=== PATIENT | male | born 1960 | race Hispanic/Latino ===

== ENCOUNTER 2024-10-16 04:40 | Emergency (ER) | payer OTHER ==
--- OUTSIDE RECORDS SUMMARY | 2024-10-16 04:46 | XMS REPORT | Continuity of Care Document ---
Author Name Unknown Address [address] [facility] [place] [address] [facility] Address [address] [facility] [place] [address] Care Team Providers Care Club Lounge Attendant Name Role Phone Demetria Younger MD, Saeed Mcmanus Primary Care Physic edil CARLENE OSORIO Attending Clinician Unavailable Kesha Suarez MA Attending Clinician UnavailLOI Chapin Attending Clinician Unavail Loi Goff MD Attending Clinician [phone] JAYSON JAIN Attending Clinician Unavailable ROMINA RENDON Attending Clinician Unav ailable MD HAIR Attending Clinician Unavailab BRET Szymanski Attending Clinician Unavailable CLAYTON ARRIETA Attending Clinician Unavailable SPARKLE OSORIO Attending Clinician Unavailable SANCHEZ DAMIAN Attending Clinician Unavailable ROBERT MACHUCA Attending Clinician Unava ilable Balta Grant MD Attending Clinician [phone] BALTA GRANT Attending Clinician Unavail able BALTA GRANT Attending Clinician Unavail able Doctor Unassigned, [place] Attending Clinician U navailable Lab, Ang - Db Attending Clinician Unavailable STEVE AGUILAR Attending Clinician Unavaila ble Steve Denney Attending Clinician [phone] Enio Almanzar MD Attending Clinician [phone] ENIO ALMANZAR Attending Clinician Unavail able Gladys Mccarty Attending Clinician [phone] James Salmon DO Attending Clinician [phone] Odilia Martinez MD Attending Clinician [phone] Carlene Osorio MD Attending Clinician [phone] CARLENE OSORIO Admitting Clinician Unavailable Juan HERNANDEZ, Odilia Admitting Clinician [phone] Carlene Osorio MD Admitting Clinician [phone] Payers Payer Name Policy Type Policy Number Effective Date Expirati on Date Source [employer] O [id number] 2022 00:00:00 [employer] Medicare [id number] 2024 00:00:00 [employer] MP [facility] 5 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 ON 9 [id number] 2023 00:00:00 MEDICARE PART A \\T\\ B [id number] 2023 00:00:00 [employer] COMMERCIAL OUT OF NETWORK [id number] 2022 00:00:00 Problems Condition Name Condition Details Condition Category Status Onset Date Resolution Date Last Treatment Date Treating Clinician Comments Source 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 Problem Active 2-18 00:00: 00 [facility] Severe recurrent major depression with psychotic features Severe Recurrent Major Depression with Psychotic Features Problem Active 218 00:00: 00 [facility] Copper deficiency Copper deficiency Disease Active 2-13 00:00: 00 [facility] Depression Depression Disease Active 2-13 00:00: 00 Gerson Stephens Unintentio nal weight loss Unintentio nal Weight Loss Problem Active 1-29 00:00: 00 [facility] Palliative care Palliative Care Problem Active 1-09 00:00: 00 [facility] Lives in senior living Lives in [facility] Problem Active 2023-08 00:00: 00 [facility] Administra tive statuses Administra tive Statuses Problem Active 2023-08 00:00: 00 [facility] Need for personal care assistance Need for Personal Care Assistance Problem Active 2023-08 00:00: 00 [facility] At high risk for fall At High Risk for Fall Problem Active 2023-08 00:00: 00 [facility] Hyperlipid emia Hyperlipid emia Problem Active 03-05 00:00: 00 [facility] Recurrent major depressive episodes, mild Recurrent Major Depressive Episodes, Mild Problem Active 7 00:00: 00 [facility] Current severe episode of major depressive disorder without psychotic features without prior episode (CMS/HCC) Current severe episode of major depressive disorder without psychotic features without prior episode (CMS/HCC) Disease Active 03-28 00:00: 00 [facility] Choreoathe tosis Choreoathe tosis Disease Active 03-28 00:00: 00 Gerson Stephens Pseudobulb ar affect Pseudobulb ar affect Disease Active 03-28 00:00: 00 Gerson Stephens Post-opera tive infection Post-opera tive infection Disease Active 05-06 00:00: 00 Gerson Stephens Acute appendicit is Acute appendicit is Disease Active 9- 00:00: 00 Gerson Stephens [place] 's chorea Cristian 's Chorea Problem Active [facility] Cough Cough Disease Resolve d 2- 00:00: 00 2024-09-27 00:00:00 2024-09-27 11:06:38 Gerson hollingsworth Juan [facility] Dry throat Dry throat Disease Resolve d - 00:00: 00 2024-09-27 00:00:00 2024-09-27 11:06:38 Gerson Martinez [facility] Infectious disease Infectious disease Disease Resolve d 09-27 00:00: 00 2024-09-27 00:00:00 2024-09-27 11:06:38 Gueritajuan edel Juan [facility] Allergies, Adverse Reactions, Alerts Allergy Name Allergy Type Status Severity Reaction(s) Onset Date Inactive Date Treating Clinician Comments Source NO KNOWN ALLERGIE S Drug Class Active [facility] Social History Social Habit Start Date Stop Date Quantity Comments Source Gender identity 2023-11-06 07:59:43 Identifies as male gender (finding) [facility] Sexual orientation [facility] Tobacco use and exposure 2024-09-27 00:00:00 2024-09-27 00:00:00 Smokeless tobacco non-user [facility] Alcoholic beverage intake 2024-09-27 00:00:00 2024-09-27 00:00:00 Lifetime non-drinker (finding) [facility] History of Social function 2024-09-27 00:00:00 2024-09-27 00:00:00 [facility] Alcohol intake 2023-11-14 00:00:00 2023-11-14 00:00:00 Ex-drinker (finding) Mee Alves - External Exposure to SARS-CoV-2 (event) 2022-10-12 00:00:00 2022-10-22 09:48:00 Not sure [facility] Sex Assigned At 1960 00:00:00 1960 00:00:00 Harrison Alves - External Smoking Status Start Date Stop Date Source Never smoked tobacco Gerson hollingsworth Juan [facility] Medications Ordered Medication Name Filled Medication Name Start Date Stop Date Current Medication? Ordering Clinician Indication Dosage Frequency Signature (SIG) Comments Components Source dextrometho rphan-quiNI Dine (Nuedexta) 20-10 MG dextrometho demian-quiNI Dine (Nuedexta) 20-10 MG 2-14 00:00: 00 09-28 23:59 :00 No 1{capsu le} QD Take 1 capsule by mouth 1 time each day. Gerson Stephens sertraline (Zoloft) 50 MG tablet sertraline (Zoloft) 50 MG tablet 2-13 11:01: 04 Yes QD Take by mouth 1 time each day. Gerson Martinez [facility] deutetraben azine ER (Austedo XR) 36 MG 24 hr tablet deutetraben azine ER (Austedo XR) 36 MG 24 hr tablet 2-13 00:00: 00 09-27 23:59 :00 No 36mg QD Take 1 tablet by mouth 1 time each day. Swallow whole; do NOT break, chew, or crush. Gerson Stephens amantadine (Symmetrel) 100 MG tablet amantadine (Symmetrel) 100 MG tablet 1-31 00:00: 00 09-27 00:00 :00 No Gerson Stephens atorvastati n (Lipitor) 20 MG tablet atorvastati n (Lipitor) 20 MG tablet 1-19 00:00: 00 Yes Gerson Martinez [facility] mirtazapine (Remeron) 15 MG tablet mirtazapine (Remeron) 15 MG tablet 2023-08 2-06 00:00: 00 Yes 15mg QD Take 15 mg by mouth in the morning. Take with meals. Gerson Martinez [facility] QUEtiapine (SEROquel) 25 MG tablet QUEtiapine (SEROquel) 25 MG tablet 5-28 00:00: 00 Yes 25mg Q.[id number] 3D Take 25 mg by mouth in the morning and 25 mg at noon and 25 mg in the evening. Gerson Martinez [facility] Mirtazapine 15 MG oral Tablet 4- 17:00: 24 11-13 00:00 :00 No [id number] 15mg Take 1 tablet (15 mg total) by mouth nightly. Mee hollingsworth Mirtazapine 15 MG oral Tablet 11-13 00:00: 00 Yes [id number] 15mg Take 1 tablet (15 mg total) by mouth daily (with breakfast) . Mee hollingsworth Deutetraben azine (Austedo) 12 MG oral Tablet 10-20 00:00: 00 Yes [id number] 3{tbl} Take 3 tablets by mouth daily. Mee hollingsworth Mirtazapine 15 MG oral Tablet 10-07 15:33: 36 Yes [id number] 15mg Take 1 tablet (15 mg total) by mouth nightly. Mee hollingsworth Deutetraben azine (Austedo) 12 MG oral Tablet 10-07 00:00: 00 Yes [id number] 3{tbl} Take 3 tablets by mouth daily. Mee hollingsworth dextrometho rphan-quiNI Dine (Nuedexta) 20-10 MG dextrometho rphan-quiNI Dine (Nuedexta) 20-10 MG 10-07 00:00: 00 09-28 00:00 :00 No 1{capsu le} QD Take 1 capsule by mouth 1 time each day. Gerson Stephens Sertraline HCl 50 MG oral Tablet 2022-08 00:00: 00 11-13 00:00 :00 No [id number] 50mg Take 1 tablet (50 mg total) by mouth daily. Mee hollingsworth Clonazepam 0.5 MG oral Tablet 2022-08 00:00: 00 Yes [id number] .5mg Q.5D TAKE ONE TABLET BY MOUTH TWICE A DAY NEEDED FOR ANXIETY Mee hollingsworth Deutetraben azine (Austedo) 12 MG oral Tablet 2022-08 00:00: 00 10-07 00:00 :00 No [id number] 3{tbl} Take 3 tablets by mouth daily. Mee hollingsworth Mirtazapine 15 MG oral Tablet 2023-1 1-08 09:42: 26 Yes [id number] 15mg Take 1 tablet (15 mg total) by mouth nightly. Mee hollingsworth Deutetraben azine (Austedo) 12 MG oral Tablet 2022-08 018 00:00: 00 Yes [id number] 36mg Take 36 mg by mouth daily Take 3 tabs by mouth daily. Mee hollingsworth Sertraline HCl 50 MG oral Tablet 9-19 00:00: 00 Yes [id number] 50mg TAKE 1 TABLET BY MOUTH DAILY Mee hollingsworth Clonazepam 0.5 MG oral Tablet 18 00:00: 00 Yes [id number] .5mg Q.5D Take 1 tablet (0.5 mg total) by mouth 2 times daily as needed for anxiety Mee hollingsworth Alprazolam 0.25 MG oral Tablet 11-09 09:55: 11 11-09 00:00 :00 No .25mg Q.5D Take 0.25 mg by mouth 2 times daily as needed Mee hollingsworth Alprazolam 0.5 MG oral Tablet 11-09 00:00: 00 Yes [id number] .5mg Q.[id number] 3D Take 1 tablet (0.5 mg total) by mouth 3 times daily as needed for sleep Mee hollingsworth ALPRAZolam (XANAX) 0.5 mg tablet 11-08 00:00: 00 Yes [id number] .5mg Take 1 tablet by mouth 2 (two) times daily. [facility] Alprazolam 0.5 MG oral Tablet 10-22 00:00: 00 11-09 00:00 :00 No Mee hollingsworth acetaminoph en (TYLENOL) tablet 1,000 mg 09-25 19:30: 00 09-25 18:49 :00 No 1000mg 1,000 mg, Oral, ONCE, 1 dose, On 09/25/22 at 1330, Routine [facility] NaCl 0.9% (NS) bolus infusion 1,000 mL 09-25 19:15: 00 09-25 19:57 :00 No 1000mL at 999 mL/hr, 1,000 mL, IV Infusion, ONCE, 1 dose, On 09/25/22 at 1315, [facility] diphenhydrA MINE (BENADRYL) injection 25 mg 09-25 18:30: 00 09-25 18:49 :00 No 25mg 25 mg, Slow IV Push, ONCE, 1 dose, On 09/25/22 at 1230, STAT [facility] LORazepam (ATIVAN) injection 1 mg 09-25 18:30: 00 09-25 18:49 :00 No 1mg 1 mg, Slow IV Push, ONCE, 1 dose, On 09/25/22 at 1230, STAT [facility] hydrOXYzine HCl 50 MG oral Tablet 09-25 00:00: 00 Yes Mee hollingsworth PAXLOVID RENAL (20) (150/100) Therapy Pack 09-25 00:00: 00 Yes Mee hollingsworth hydrOXYzine Pamoate 25 MG oral Capsule 09-23 00:00: 00 Yes Mee hollingsworth escitalopra m oxalate (LEXAPRO) tablet 10 mg 05-07 14:00: 00 Yes 10mg 10 mg, Oral, DAILY, First dose on Tue05/07/20 at 0900, Until Discontinu ed, Routine [facility] NaCl 0.9% (NS) IV infusion 1,000 mL 05-07 03:15: 00 Yes 1000mL at 100 mL/hr, IV Infusion, CONTINUOUS , Starting Tue05/06/20 at 2215, Until Discontinu ed, Routine [facility] docusate (COLACE) capsule 100 mg 05-07 01:00: 00 Yes 100mg 100 mg, Oral, BID, First dose on Tue05/06/20 at 2000, Until Discontinu ed, Routine [facility] lactobacill us acidophilus 25 million cell -100 mg captab 05-07 00:00: 05-18 04:59 :00 No [id number] 1{tbl} Take 1 tablet by mouth 2 (two) times daily for 10 days. [facility] amoxicillin -pot clavulanate 500 mg (AUGMENTIN) 500-125 mg tablet 05-07 00:00: 00 05-18 04:59 :00 No [id number] 9103 500mg Take 1 tablet by mouth 2 (two) times daily with meals for 10 days. [facility] traMADoL 50 mg tablet 05-07 00:00: 00 05-15 04:59 :00 No [id number] 50mg Take 1 tablet by mouth every 6 (six) hours as needed for Pain (scale 7-10) for up to 7 days. Indication s: acute pain [facility] HYDROcodone -acetaminop hen (NORCO 5) 5-325 mg tablet 1 tablet 05-06 22:45: 51 Yes 1{tbl} 1 tablet, Oral, Q6HPRN, Starting Tue05/06/20 at 1745, Until Discontinu ed, Routine, Pain (scale 7-10) [facility] ibuprofen (IBU) tablet 400 mg 05-06 22:45: 39 Yes 400mg 400 mg, Oral, Q6HPRN, Starting Tue05/06/20 at 1745, Until Discontinu ed, Routine, Pain (scale 4-6) [facility] acetaminoph en (TYLENOL) tablet 650 mg 05-06 22:45: 29 Yes 650mg 650 mg, Oral, Q6HPRN, Starting Tue05/06/20 at 1745, Until Discontinu ed, Routine, Pain (scale 1-3) [facility] enoxaparin (LOVENOX) injection 40 mg 05-06 22:00: 00 Yes 40mg 40 mg, Subcutaneo us, DAILY, First dose on Tue05/06/20 at 1700, Until Discontinu ed, Routine [facility] piperacilli n-tazobacta m (ZOSYN) 3.375 g in NaCl 0.9% (NS) 100 mL MINI-BAG 05-06 21:30: 00 Yes 3.375g 3.375 g, IV Piggyback, Q6H ABX, First dose (after last reorder) on Tue05/06/20 at 1630, Until Discontinu ed, 100 mL
Reas on for Anti-Infec tive: Empiric Therapy for Suspected Infection< br>Empiric Therapy Site: Abdominal< br>Duratio n of therapy: 72 hours [facility] ondansetron (ZOFRAN (PF)) injection 4 mg 05-06 20:17: 44 Yes 4mg 4 mg, Slow IV Push, Q6HPRN, Starting Tue05/06/20 at 1517, Until Discontinu ed, Routine, Nausea and Vomiting (N/V) [facility] lactobacill us acidophilus (ACIDOPHILL US) 25 million cell -100 mg captab 1 tablet 05-06 20:00: 00 Yes 1{tbl} 1 tablet, Oral, BID, First dose on Tue05/06/20 at 1500, Until Discontinu ed, Routine [facility] iohexol (OMNIPAQUE 350 BULK-150 mL) injection 120 mL 05-06 15:45: 00 05-06 15:32 :00 No 120mL 120 mL, Intravenou s, ONCE, 1 dose, Tue05/06/20 at 1045, Routine [facility] NaCl 0.9% (NS) bolus infusion 2,313 mL 05-06 15:30: 00 05-06 15:44 :00 No 30mL/kg at 999 mL/hr, 2,313 mL (30 mL/kg ?77.1 kg), IV Piggyback, ONCE, 1 dose, Tue05/06/20 at 1030, STAT [facility] piperacilli n-tazobacta m (ZOSYN) 3.375 g in NaCl 0.9% (NS) 100 mL MINI-BAG 05-06 15:30: 00 05-06 15:03 :00 No 3.375g 3.375 g, IV Piggyback, ONCE, 1 dose, Tue05/06/20 at 1030, 100 mL
Reas on for Anti-Infec tive: Empiric Therapy for Suspected Infection< br>Empiric Therapy Site: Abdominal< br>Duratio n of therapy: 72 hours [facility] acetaminoph en (TYLENOL) tablet 1,000 mg 05-06 15:15: 00 05-06 14:08 :00 No 1000mg 1,000 mg, Oral, ONCE, 1 dose, [facility] 05/06/20 at 1015, [facility] ondansetron (ZOFRAN (PF)) injection 4 mg 05-06 15:00: 00 05-06 14:08 :00 No 4mg 4 mg, Slow IV Push, ONCE, 1 dose, Tue05/06/20 at 1000, Routine [facility] NaCl 0.9% (NS) bolus infusion 1,000 mL 05-06 14:00: 00 05-06 15:31 :00 No 1000mL at 999 mL/hr, 1,000 mL, IV Infusion, ONCE, 1 dose, 05/06/20 at 0900, STAT [facility] ibuprofen 800 mg tablet 04-19 00:00: 00 Yes [id number] 800mg Take 1 tablet by mouth every 6 (six) hours as needed for Pain (scale 1-3) or Pain (scale 4-6). [facility] acetaminoph en ADULT (OFIRMEV) injection 1,000 mg 04-18 20:30: 00 04-19 13:49 :00 No 1000mg 1,000 mg, IV Infusion, Administer over 15 Minutes, Q8H ABX, 3 doses, First dose on Tue04/18/20 at 1530, Last dose on Tue04/19/20 at 0730, Routine
Indicatio n: Perioperat kailash Patient [facility] ibuprofen (IBU) tablet 800 mg 04-18 19:22: 06 Yes 800mg 800 mg, Oral, Q6HPRN, Starting Tue04/18/20 at 1422, Until Discontinu ed, Routine, Pain (scale 1-3), Pain (scale 4-6) [facility] piperacilli n-tazobacta m (ZOSYN) 3.375 g in NaCl 0.9% (NS) 100 mL MINI-BAG 04-18 01:00: 00 Yes 3.375g 3.375 g, IV Piggyback, Q6H ABX, First dose on Shayy 04/17/20 at 2000, Until Discontinu ed, 100 mL
Reas on for Anti-Infec tive: Documented Infection< br>Documen nishant Infection Site: Abdominal< br>Duratio n of Therapy: 7 days [facility] ibuprofen (IBU) tablet 400 mg 04-17 23:45: 00 04-18 19:22 :46 No 400mg 400 mg, Oral, Q6H, First dose on Shayy 04/17/20 at 1845, Until Discontinu ed, Routine [facility] LORazepam (ATIVAN) injection 1 mg 04-17 22:30: 00 04-18 01:36 :00 No 1mg 1 mg, Slow IV Push, ONCE, 1 dose, Shayy 04/17/20 at 1730, Routine [facility] NaCl 0.9% (NS) IV infusion 1,000 mL 04-17 22:15: 00 Yes 1000mL at 125 mL/hr, IV Infusion, CONTINUOUS , Starting Shayy 04/17/20 at 1715, Until Discontinu ed, Routine [facility] ondansetron (ZOFRAN (PF)) injection 4 mg 04-17 21:08: 24 Yes 4mg 4 mg, Slow IV Push, Q6HPRN, Starting Shayy 04/17/20 at 1608, Until Discontinu ed, Routine, Nausea and Vomiting (N/V) [facility] morpHINE injection 2 mg 04-17 21:07: 58 04-18 19:22 :46 No 2mg 2 mg, Slow IV Push, Q3HPRN, Starting Shayy 04/17/20 at 1607, Until Tue04/18/20 at 1422, Routine, Pain (scale 7-10) [facility] mirtazapine 15 mg tablet Take 1 tablet every day by oral route at bedtime. mirtazapine 15 mg tablet Take 1 tablet every day by oral route at bedtime. No 1 Q1D mirtazapin e 15 mg tablet Take 1 tablet every day by oral route at bedtime. [facility] Nuedexta 20 mg-10 mg capsule Take 1 capsule every 12 hours by oral route for 30 days. Nuedexta 20 mg-10 mg capsule Take 1 capsule every 12 hours by oral route for 30 days. No 1capsul e(s) Q12H Nuedexta 20 mg-10 mg capsule Take 1 capsule every 12 hours by oral route for 30 days. [facility] Austedo XR 36 mg tablet,exte nded release Austedo XR 36 mg tablet,exte nded release No Austedo XR 36 mg tablet,ext ended release [facility] Seroquel 25 mg tablet Take 1 tablet 3 times a day by oral route. Seroquel 25 mg tablet Take 1 tablet 3 times a day by oral route. No 1 TID Seroquel 25 mg tablet Take 1 tablet 3 times a day by oral route. [facility] Immunizations Ordered Immunization Name Filled Immunization Name Date Status Comments Source Covid-19 Vaccine Moderna (Spikevax), Mrna-lnp, Jeremías Protein, Pf 2020-11-21 00:00:00 Completed [facility] Covid-19 Vaccine Moderna (Spikevax), Mrna-lnp, Jeremías Protein, Pf 2020-10-21 00:00:00 Completed [facility] Covid-19 Vaccine Moderna (Spikevax), Mrna-lnp, Jeremías Protein, Pf Unknown Completed [facility] External Covid-19 Vaccine Moderna (Spikevax), Mrna-lnp, Jeremías Protein, Pf Unknown Completed [facility] External Covid-19 Vaccine Moderna (Spikevax), Mrna-lnp, Jeremías Protein, Pf Unknown Completed [facility] COVID-19 (SARS-COV-2) vaccine, unspecified COVID-19 (SARS-COV-2) vaccine, unspecified Unknown Completed [facility] influenza, unspecified formulation influenza, unspecified formulation Unknown Completed [facility] Vital Signs Vital Name Observation Time Observation Value Comments S ource BMI (Body Mass Index) 2024-10-01 00:00:00 20.9 kg/m2 [facility] BP Systolic 2024-10-01 00:00:00 132 mm[Hg] [facility] BP Diastolic 2024-10-01 00:00:00 68 mm[Hg] [facility] Height 2024-10-01 00:00:00 67 [in_i] [facility] Body Weight 2024-10-01 00:00:00 2132 [oz_av] [facility] Systolic blood pressure 2024-09-27 11:03:00 112 mm[Hg] [facility] Epic Diastolic blood pressure 2024-09-27 11:03:00 49 mm[Hg] [facility] Epic Heart rate 2024-09-27 11:03:00 91 /min [facility] Body temperature 2024-09-27 11:03:00 36.22 [facility] Epic Respiratory rate 2024-09-27 11:03:00 16 /min [facility] Body height 2024-09-27 11:03:00 157.5 cm [facility] Body weight 2024-09-27 11:03:00 62.143 kg [facility] [place] [facility] BMI 2024-09-27 11:03:00 25.06 kg/m2 [facility] Oxygen saturation in Arterial blood by Pulse oximetry 2024-09-27 11:03:00 94 /min [facility] Epic Systolic blood pressure 2024-09-27 11:03:00 112 mm[Hg] [facility] Epic Diastolic blood pressure 2024-09-27 11:03:00 49 mm[Hg] [facility] Epic Heart rate 2024-09-27 11:03:00 91 /min [facility] Body temperature 2024-09-27 11:03:00 36.22 [facility] Epic Respiratory rate 2024-09-27 11:03:00 16 /[facility] 2024-09-27 11:03:00 157.5 cm [facility] [place] [facility] Body weight 2024-09-27 11:03:00 62.143 kg [facility] BMI 2024-09-27 11:03:00 25.06 kg/m2 [facility] Oxygen saturation in Arterial blood by Pulse oximetry 2024-09-27 11:03:00 94 /min [facility] Height 2024-09-11 00:00:00 67 [in_i] [facility] BP Diastolic 2024-09-11 00:00:00 82 mm[Hg] [facility] BP Systolic 2024-09-11 00:00:00 138 mm[Hg] [facility] Body Weight 2024-09-11 00:00:00 2182 [oz_av] [facility] BMI (Body Mass Index) 2024-09-11 00:00:00 21.4 kg/m2 [facility] Body Weight 2024-08-23 00:00:00 2182 [oz_av] [facility] BMI (Body Mass Index) 2024-08-23 00:00:00 21.4 kg/m2 [facility] BP Systolic 2024-08-23 00:00:00 136 mm[Hg] [facility] BP Diastolic 2024-08-23 00:00:00 79 mm[Hg] [facility] Height 2024-08-23 00:00:00 67 [in_i] [facility] BP Systolic 2024-07-27 00:00:00 118 mm[Hg] [facility] BMI (Body Mass Index) 2024-07-27 00:00:00 22.6 kg/m2 [facility] Height 2024-07-27 00:00:00 67 [in_i] [facility] Body Weight 2024-07-27 00:00:00 2304 [oz_av] [facility] BP Diastolic 2024-07-27 00:00:00 74 mm[Hg] [facility] BP Diastolic 2024-07-06 00:00:00 78 mm[Hg] [facility] Body Weight 2024-07-06 00:00:00 2352 [oz_av] [facility] Height 2024-07-06 00:00:00 67 [in_i] [facility] BMI (Body Mass Index) 2024-07-06 00:00:00 23 kg/m2 [facility] BP Systolic 2024-07-06 00:00:00 128 mm[Hg] [facility] BP Systolic 2024-06-21 00:00:00 132 mm[Hg] [facility] Height 2024-06-21 00:00:00 67 [in_i] [facility] Body Weight 2024-06-21 00:00:00 2342 [oz_av] [facility] BP Diastolic 2024-06-21 00:00:00 73 mm[Hg] [facility] BMI (Body Mass Index) 2024-06-21 00:00:00 22.9 kg/m2 [facility] BMI (Body Mass Index) 2024-05-30 00:00:00 22.9 kg/m2 [facility] BP Systolic 2024-05-30 00:00:00 132 mm[Hg] [facility] Body Weight 2024-05-30 00:00:00 2342 [oz_av] [facility] BP Diastolic 2024-05-30 00:00:00 73 mm[Hg] [facility] Height 2024-05-30 00:00:00 67 [in_i] [facility] Height 2024-05-07 00:00:00 67 [in_i] [facility] Body Weight 2024-05-07 00:00:00 2264 [oz_av] [facility] BP Diastolic 2024-05-07 00:00:00 70 mm[Hg] [facility] BP Systolic 2024-05-07 00:00:00 132 mm[Hg] [facility] BMI (Body Mass Index) 2024-05-07 00:00:00 22.2 kg/m2 [facility] BP Diastolic 2024-04-12 00:00:00 68 mm[Hg] [facility] BP Systolic 2024-04-12 00:00:00 118 mm[Hg] [facility] BMI (Body Mass Index) 2024-04-12 00:00:00 22.1 kg/m2 [facility] Body Weight 2024-04-12 00:00:00 2260 [oz_av] [facility] Height 2024-04-12 00:00:00 67 [in_i] [facility] BP Systolic 2024-04-02 00:00:00 122 mm[Hg] [facility] Height 2024-04-02 00:00:00 67 [in_i] [facility] BMI (Body Mass Index) 2024-04-02 00:00:00 22.1 kg/m2 [facility] BP Diastolic 2024-04-02 00:00:00 76 mm[Hg] [facility] Body Weight 2024-04-02 00:00:00 2260 [oz_av] [facility] BMI (Body Mass Index) 2024-03-12 00:00:00 22.1 kg/m2 [facility] Height 2024-03-12 00:00:00 67 [in_i] [facility] Body Weight 2024-03-12 00:00:00 2260 [oz_av] [facility] BP Systolic 2024-03-12 00:00:00 134 mm[Hg] [facility] BP Diastolic 2024-03-12 00:00:00 76 mm[Hg] [facility] BMI (Body Mass Index) 2024-02-27 00:00:00 21.8 kg/m2 [facility] BP Systolic 2024-02-27 00:00:00 127 mm[Hg] [facility] Height 2024-02-27 00:00:00 67 [in_i] [facility] Body Weight 2024-02-27 00:00:00 2230 [oz_av] [facility] BP Diastolic 2024-02-27 00:00:00 72 mm[Hg] [facility] Height 2024-02-24 00:00:00 67 [in_i] [facility] BP Diastolic 2024-02-24 00:00:00 70 mm[Hg] [facility] Body Weight 2024-02-24 00:00:00 2160 [oz_av] [facility] BP Systolic 2024-02-24 00:00:00 115 mm[Hg] [facility] BMI (Body Mass Index) 2024-02-24 00:00:00 21.1 kg/m2 [facility] Body Weight 2024-02-10 00:00:00 2160 [oz_av] [facility] BP Diastolic 2024-02-10 00:00:00 74 mm[Hg] [facility] BMI (Body Mass Index) 2024-02-10 00:00:00 21.1 kg/m2 [facility] Height 2024-02-10 00:00:00 67 [in_i] [facility] BP Systolic 2024-02-10 00:00:00 121 mm[Hg] [facility] Height 2024-02-09 00:00:00 67 [in_i] [facility] BMI (Body Mass Index) 2024-02-09 00:00:00 21.1 kg/m2 [facility] BP Systolic 2024-02-09 00:00:00 115 mm[Hg] [facility] Diastolic 2024-02-09 00:00:00 70 mm[Hg] [facility] Body Weight 2024-02-09 00:00:00 2160 [oz_av] [facility] BMI (Body Mass Index) 2024-02-06 00:00:00 21.1 kg/m2 [facility] Body Weight 2024-02-06 00:00:00 2160 [oz_av] [facility] Height 2024-02-06 00:00:00 67 [in_i] [facility] BP Systolic 2024-02-06 00:00:00 133 mm[Hg] [facility] Diastolic 2024-02-06 00:00:00 66 mm[Hg] [facility] Systolic blood pressure 2023-11-29 00:08:00 149 mm[Hg] [facility] Diastolic blood pressure 2023-11-29 00:08:00 108 mm[Hg] [facility] Heart rate 2023-11-29 00:06:00 76 /min [facility] Body temperature 2023-11-29 00:06:00 37.17 Elisabeth [facility] Respiratory rate 2023-11-29 00:06:00 20 /min [facility] Body weight 2023-11-29 00:06:00 62.143 kg [facility] BMI 2023-11-29 00:06:00 20.23 kg/m2 [facility] Oxygen saturation in Arterial blood by Pulse oximetry 2023-11-29 00:06:00 98 /min [facility] Systolic blood pressure 2023-11-14 20:55:00 118 mm[Hg] Mee Osborne ld - External Diastolic blood pressure 2023-11-14 20:55:00 76 mm[Hg] Mee lees - External Heart rate 2023-11-14 20:55:00 66 /min Kelse y Seybold - External Body temperature 2023-11-14 20:55:00 36.5 Elisabeth Mee Seybold - External Respiratory rate 2023-11-14 20:55:00 16 /min Mee Seybold - External Body height 2023-11-14 20:55:00 170.2 cm Tiffany ey Seybold - External Body weight 2023-11-14 20:55:00 69.491 kg Tiffany ey Seybold - External BMI 2023-11-14 20:55:00 23.99 kg/m2 Tiffany ey Seybold - External Oxygen saturation in Arterial blood by Pulse oximetry 2023-11-14 20:55:00 97 /min Mee Seybo ld - External Systolic blood pressure 2023-10-07 21:35:00 122 mm[Hg] Mee Seybo ld - External Diastolic blood pressure 2023-10-07 21:35:00 76 mm[Hg] Mee Seybo ld - External Heart rate 2023-10-07 21:35:00 82 /min Kelse y Seybold - External Body temperature 2023-10-07 21:35:00 36.83 Elisabeth Mee Seybold - External Respiratory rate 2023-10-07 21:35:00 16 /min Mee Seybold - External Body height 2023-10-07 21:35:00 172.7 cm Tiffnay ey Seybold - External Body weight 2023-10-07 21:35:00 69.854 kg Tiffany ey Seybold - External BMI 2023-10-07 21:35:00 23.42 kg/m2 Tiffany ey Seybold - External Oxygen saturation in Arterial blood by Pulse oximetry 2023-10-07 21:35:00 97 /min Mee Seybo ld - External Systolic blood pressure 2023-06-22 15:43:00 120 mm[Hg] Mee Seybo ld - External Diastolic blood pressure 2023-06-22 15:43:00 74 mm[Hg] Mee Seybo ld - External Heart rate 2023-06-22 15:43:00 72 /min Kelse y Seybold - External Body temperature 2023-06-22 15:43:00 36.78 Elisabeth Mee Seybold - External Respiratory rate 2023-06-22 15:43:00 16 /min Mee Seybold - External Body height 2023-06-22 15:43:00 172.7 cm Tiffany ey Seybold - External Body weight 2023-06-22 15:43:00 65.227 kg Tiffany ey Seybold - External BMI 2023-06-22 15:43:00 21.86 kg/m2 Tiffany ey Seybold - External Systolic blood pressure 2022-11-09 14:20:00 130 mm[Hg] Mee Seybo ld - External Diastolic blood pressure 2022-11-09 14:20:00 68 mm[Hg] Mee Seybo ld - External Heart rate 2022-11-09 14:20:00 77 /min Gael villarreal Seybold - External Body temperature 2022-11-09 14:20:00 37 Elisabeth Mee Seybold - External Respiratory rate 2022-11-09 14:20:00 16 /min Mee Seybold - External Body height 2022-11-09 14:20:00 172.7 cm Tiffany ey Seybold - External Body weight 2022-11-09 14:20:00 60.328 kg Tiffany ey Seybold - External BMI 2022-11-09 14:20:00 20.22 kg/m2 Tiffany ey Seybold - External Oxygen saturation in Arterial blood by Pulse oximetry 2022-11-09 14:20:00 92 /min Mee Echolsybo ld - External Systolic blood pressure 2022-10-22 16:21:00 151 mm[Hg] [facility] Diastolic blood pressure 2022-10-22 16:21:00 87 mm[Hg] [facility] Heart rate 2022-10-22 16:21:00 74 /min [facility] 2022-10-22 16:21:00 175.3 cm [facility] weight 2022-10-22 16:21:00 62.143 kg [facility] BMI 2022-10-22 16:21:00 20.23 kg/m2 [facility] Oxygen saturation in Arterial blood by Pulse oximetry 2022-10-22 16:21:00 98 /min [facility] Systolic blood pressure 2022-09-25 20:09:55 112 mm[Hg] [facility] Diastolic blood pressure 2022-09-25 20:09:55 64 mm[Hg] [facility] Heart rate 2022-09-25 20:09:55 74 /min Unive [facility] Respiratory rate 2022-09-25 20:09:55 18 /min [facility] Oxygen saturation in Arterial blood by Pulse oximetry 2022-09-25 20:09:55 97 /min [facility] Body temperature 2022-09-25 17:43:00 37.78 Elisabeth [facility] Body weight 2022-09-25 17:43:00 69.4 kg [facility] BMI 2022-09-25 17:43:00 27.10 kg/m2 [facility] Systolic blood pressure 2020-05-23 15:33:00 144 mm[Hg] [facility] Diastolic blood pressure 2020-05-23 15:33:00 92 mm[Hg] [facility] Heart rate 2020-05-23 15:33:00 94 /min Un[facility] Body temperature 2020-05-23 15:33:00 36.56 Elisabeth [facility] Respiratory rate 2020-05-23 15:33:00 18 /min [facility] Body weight 2020-05-23 15:33:00 69.536 kg [facility] BMI 2020-05-23 15:33:00 27.16 kg/m2 [facility] Systolic blood pressure 2020-05-14 18:51:00 136 mm[Hg] [facility] Diastolic blood pressure 2020-05-14 18:51:00 90 mm[Hg] [facility] Heart rate 2020-05-14 18:51:00 93 /min [facility] Body temperature 2020-05-14 18:50:00 36.67 Elisabeth [facility] Respiratory rate 2020-05-14 18:50:00 15 /min [facility] Body height 2020-05-14 18:50:00 160 cm [facility] Body weight 2020-05-14 18:50:00 68.947 kg [facility] BMI 2020-05-14 18:50:00 26.93 kg/m2 [facility] Systolic blood pressure 2020-05-07 15:56:00 126 mm[Hg] [facility] Diastolic blood pressure 2020-05-07 15:56:00 77 mm[Hg] [facility] Heart rate 2020-05-07 15:56:00 88 /min [facility] Body temperature 2020-05-07 15:56:00 37.06 Elisabeth [facility] Respiratory rate 2020-05-07 15:56:00 18 /min [facility] Oxygen saturation in Arterial blood by Pulse oximetry 2020-05-07 15:56:00 96 /min [facility] Body weight 2020-05-07 10:06:00 71.385 kg [facility] BMI 2020-05-07 10:06:00 27.88 kg/m2 [facility] Systolic blood pressure 2020-04-19 16:08:00 112 mm[Hg] [facility] Diastolic blood pressure 2020-04-19 16:08:00 78 mm[Hg] [facility] Heart rate 2020-04-19 16:08:00 67 /min [facility] Body temperature 2020-04-19 16:08:00 36.72 Elisabeth [facility] Respiratory rate 2020-04-19 16:08:00 16 /min [facility] Oxygen saturation in Arterial blood by Pulse oximetry 2020-04-19 16:08:00 96 /min [facility] Body weight 2020-04-19 08:00:00 75.479 kg [facility] BMI 2020-04-19 08:00:00 29.48 kg/m2 [facility] Body height 2020-04-17 20:56:00 160 cm [facility] Procedures Procedure Date / Time Performed Performing Clinician Source ECG 12 lead 2024-09-27 00:00:[address] [facility] Epic LIPASE 2022-09-25 18:32:00 [facility]. METABOLIC PANEL (41801) 2022-09-25 18:32:00 Steve Aguilar [facility] CBC WITH DIFF 2022-09-25 18:32:00 Steve Aguilar [facility] URINALYSIS 2022-09-25 18:32:00 [facility] RAPID STREP SCREEN FOR GROUP A 2022-09-25 18:32:00 Steve Aguilar [facility] COVID-19 (ID NOW RAPID TESTING) 2022-09-25 18:32:00 Steve Aguilar [facility] CONSENT/REFUSAL FOR DIAGNOSIS AND TREATMENT 2022-09-25 17:35:52 Doctor Unassigned, Humbird [facility] NOTICE OF PRIVACY PRACTICES 2020-05-23 15:25:56 Doctor Unassigned, [place] [facility] PHOSPHORUS 2020-05-07 09:48:00 Odilia Martinez [facility] MAGNESIUM 2020-05-07 09:48:00 Odilia Martinez [facility] COMP. METABOLIC PANEL (47230) 2020-05-07 09:48:00 Odilia Martinez [facility] LIPID PANEL (50921)(TOTAL CHOLESTEROL, TRIGLYCERIDES, HDL) 2020-05-07 09:48:00 Odilia Martinez [facility] CBC WITH DIFF 2020-05-07 09:48:00 Odilia Martinez [facility] PROTHROMBIN TIME / INR 2020-05-07 09:48:00 Saurav Martinez [facility] N-TERMINAL PRO-BNP 2020-05-07 09:48:00 Odilia Martinez [facility] IR DRAINAGE BY CATHETER SOFT TISSUE 2020-05-06 18:00:00 James Salmon [facility] ASPIRATE OR ABSCESS CULTURE(AEROBIC/ANAEROB IC) 2020-05-06 17:15:00 Odilia Martinez [facility] CT ABDOMEN PELVIS W CONTRAST 2020-05-06 15:43:11 James Salmon [facility] BLOOD CULTURE SCREEN 2020-05-06 14:33:00 Darian Salmon [facility] LACTIC ACID WHOLE BLOOD 2020-05-06 14:22:00 [facility]EN 2020-05-06 14:20:00 Darian Salmon [facility] URINALYSIS 2020-05-06 14:19:00 [facility] 2020-05-06 14:02:00 Odilia Martinez [facility] URIC ACID 2020-05-06 14:02:00 [facility] 2020-05-06 14:02:00 Singer [facility] THYROID STIMULATING HORMONE 2020-05-06 14:02:00 Juan jade [facility] COMP. METABOLIC PANEL (70135) 2020-05-06 14:02:[address] [facility] LIPID PANEL (31840)(TOTAL CHOLESTEROL, TRIGLYCERIDES, HDL) 2020-05-06 14:02:[address] [facility] CBC WITH DIFF 2020-05-06 14:02:00 Singer [facility] GLYCOSYLATED HEMOGLOBIN (A1C) 2020-05-06 14:02:00 Juan jade [facility] COVID-19 (ID NOW RAPID TESTING) 2020-05-06 14:02:[address] [facility] NOTICE OF PRIVACY PRACTICES 2020-05-06 13:26:20 Doctor Unassigned, [place] [facility] CONSENT/REFUSAL FOR DIAGNOSIS AND TREATMENT 2020-05-06 13:25:16 Doctor Unassigned, [place] [facility] CBC WITH DIFF 2020-04-19 13:41:00 Florin Solis [facility] MAGNESIUM 2020-04-18 08:44:00 Chantelle Langley [facility] BASIC METABOLIC PANEL (NA, K, CL, CO2, GLUCOSE, BUN, CREATININE, CA) 2020-04-18 08:44:00 Chantelle Langley [facility] CBC WITH DIFF 2020-04-18 08:44:00 Chantelle Langley [facility] PROTHROMBIN TIME / INR 2020-04-18 08:44:00 Tate Osorio [facility] ACTIVATED PARTIAL THRMPLAS DYLON 2020-04-18 08:44:00 Carlene Osorio [facility] URINALYSIS 2020-04-17 21:46:00 [facility]INE [facility] 2020-04-17 21:46:00 Chantelle Langley [facility] LACTIC ACID WHOLE BLOOD 2020-04-17 21:46:00 Ramírez Langley [facility] BLOOD CULTURE SCREEN 2020-04-17 21:43:00 Chantelle Langley [facility] BLOOD CULTURE SCREEN 2020-04-17 21:33:00 Chantelle Langley [facility] COVID-19 (ID NOW RAPID TESTING) 2020-04-17 21:24:00 Chantelle Langley [facility] Encounters Start Date/Time End Date/Time Encounter Type Admission Type Attending [facility] Care Facility Care Department Encounter ID Source 2023-01-28 13:11:40 Outpatient [facility] [id number] [facility] 2023-01-19 09:59:36 Outpatient [facility] [id number] [facility] 2020-04-17 15:33:00 Inpatient U CARLENE OSORIO [facility] [id number] [facility] 2024-10-01 00:00:00 2024-10-01 00:00:00 BRIANA Alvarez: [address] [place] [phone] , Ph. [facility] - GC_BAHC_Lak [facility] [id number] [facility] 2024-09-28 00:00:00 2024-09-28 15:17:34 Kesha Roberto Kasandra [place] [id number] Gerson Martinez [facility] 2024-09-27 10:45:28 2024-09-27 11:35:55 Outpatient Elective EMALOI CALLES [facility] [id number] [facility] 2024-09-27 10:45:00 2024-09-27 11:35:55 Office Visit Loi Lackey [id number] Gerson [facility] 2024-09-11 00:00:00 2024-09-11 00:00:00 BRIANA Alvarez: [address] [place] [phone] , Ph. [facility] GC_BAHC_Lak [facility] [id number] [facility] 2024-08-23 00:00:00 2024-08-23 00:00:00 Saeed Augustin MD: [address] [place], [place] [phone] , Ph. [facility] GC_BAHC_Lak [facility] [id number] [facility] 2024-07-27 00:00:00 2024-07-27 00:00:00 BRIANA Alvarez: [address] [place] [phone] , Ph. [facility] GC_BAHC_Lak [facility] [id number] [facility] 2024-07-20 00:00:00 2024-07-20 00:00:00 Outpatient JAYSON JAIN [id number] Mee Alves 2024-07-06 00:00:00 2024-07-06 00:00:00 BRIANA Alvarez: [address] [place] [phone] , Ph. [facility] GC_BAHC_Lak [facility] [id number] [facility] 2024-06-21 00:00:00 2024-06-21 00:00:00 Saeed Augustin MD: [address] [place] [phone] , Ph. [facility] GC_BAHC_Lak [facility] [id number] [facility] 2024-05-30 00:00:00 2024-05-30 00:00:00 BRIANA Alvarez: [address] [place] [phone] , Ph. [facility] GC_BAHC_Lak [facility] [id number] [facility] 2024-05-07 00:00:00 2024-05-07 00:00:00 BRIANA Alvarez: [address] [place] [phone] , Ph. [facility] GC_BAHC_Lak [facility] [id number] [facility] 2024-04-12 00:00:00 2024-04-12 00:00:00 Saeed Augustin MD: [address] [place] [phone] , Ph. [facility] GC_BAHC_Lak [facility] [id number] [facility] 2024-04-02 15:30:00 2024-04-02 15:30:00 Outpatient JAYSON JAIN [id number] Mee Alves 2024-04-02 00:00:00 2024-04-02 00:00:00 BRIANA Alvarez: [address] [place] [phone] , Ph. [facility] GC_BAHC_Lak [facility] [id number] [facility] 2024-03-12 00:00:00 2024-03-12 00:00:00 BRIANA Alvarez: [address] [place] [phone] , Ph. [facility] - GC_BAHC_L[facility] [id number] [facility] 2024-03-09 00:00:00 2024-03-09 00:00:00 Outpatient JAYSON JAIN MEE CONNOR [id number] [facility] 2024-02-27 00:00:00 2024-02-27 00:00:00 Deisi Schultz PA: [address] [place] [phone] , Ph. [facility] - GC_BAHC_L[facility] [id number] [facility] 2024-02-24 00:00:00 2024-02-24 00:00:00 Deisi Schultz PA: [address] [place] [phone] , Ph. [facility] GC_BAHC_Lak [facility] [id number] [facility] 2024-02-15 14:00:00 2024-02-15 14:00:00 Outpatient SUSY JAYSON CONNOR [id number] [facility] 2024-02-10 00:00:00 2024-02-10 00:00:00 Deisi Schultz PA: [address] [place] [phone] , Ph. [facility] - GC_BAHC_L[facility] [id number] [facility] 2024-02-09 00:00:00 2024-02-09 00:00:00 Saeed Augustin MD: [address] [place] [phone] , Ph. [facility] - GC_BAHC_Lak [facility] [id number] [facility] 2024-02-06 00:00:00 2024-02-06 00:00:00 Deisi Schultz PA: [address] [place] [phone] , Ph. [facility] - GC_BAHC_Lak e [facility] [id number] [facility] 2024-02-03 14:45:00 2024-02-03 14:45:00 Outpatient ROMINA RENDON [id number] Mee Alves 2024-01-25 00:00:00 2024-01-25 00:00:00 Outpatient MD MEE BAINS [id number] [facility] 2024-01-10 00:00:00 2024-01-10 00:00:00 Outpatient JAYSON JAIN [id number] [facility] 2023-12-21 00:00:00 2023-12-21 00:00:00 Outpatient BRET BEAR [id number] [facility] 2023-11-29 00:00:00 2023-11-29 00:00:00 Outpatient CLAYTON ARRIETA [id number] [facility] 2023-11-28 19:09:00 2023-11-28 20:45:00 Emergency X WOODYMICHAELYvan ANDREGARRET [facility] ERT [id number] [facility] 2023-11-28 19:09:00 2023-11-28 20:45:00 Emergency [facility] [id number] [facility] 2023-11-28 00:00:00 2023-11-28 00:00:00 Outpatient JAYSON JAIN [id number] [facility] 2023-11-25 00:00:00 2023-11-25 00:00:00 Outpatient CLAYTON ARRIETA [id number] Mee ybirma 2023-11-25 00:00:00 2023-11-25 00:00:00 Outpatient MEE CONNOR [id number] Mee Alves 2023-11-14 16:00:00 2023-11-14 16:00:00 Outpatient JAYSON JAIN MEE CONNOR [id number] Mee Seybirma 2023-11-04 00:00:00 2023-11-04 00:00:00 Outpatient JAYSON JAIN MEE CONNOR [id number] [facility]ee Seybirma 2023-10-21 00:00:00 2023-10-21 00:00:00 Outpatient JAYSON JAIN MEE CONNOR [id number] Mee Seybold 2023-10-17 00:00:00 2023-10-17 00:00:00 Outpatient JAYSON JAIN MEE CONNOR [id number] Mee Seybold 2023-10-17 00:00:00 2023-10-17 00:00:00 Outpatient MD MEE BAINS [id number] [facility] 2023-10-07 15:30:00 2023-10-07 15:30:00 Outpatient JAYSON JAIN MEE CON[facility] [id number] [facility] 2023-10-03 15:15:00 2023-10-03 15:15:00 Outpatient DEREK RENDONHAN MEE CONNOR [id number] [facility] 2023-09-21 09:30:00 2023-09-21 09:30:00 Outpatient JAYSON JAIN MEE CONNOR [id number] [facility] 2023-07-28 00:00:00 2023-07-28 00:00:00 Outpatient BRET BEAR [id number] [facility] 2023-07-19 00:00:00 2023-07-19 00:00:00 Outpatient BRET BEAR [id number] Mee Seybold 2023-06-29 00:00:00 2023-06-29 00:00:00 Outpatient BRET BEAR [id number] Mee Seybold 2023-06-22 10:00:00 2023-06-22 10:00:00 Outpatient JAINJAYSON MEE CONNOR [id number] Mee Seybold 2023-06-20 00:00:00 2023-06-20 00:00:00 Outpatient HUNDL, BRET CONNOR [id number] [facility] 2023-06-20 00:00:00 2023-06-20 00:00:00 Outpatient SANCHEZ DAMIAN [facility]EE CON[facility] [id number] [facility] 2023-05-31 00:00:00 2023-05-31 00:00:00 Outpatient HUNDL, BRET CONNOR [id number] [facility] 2023-05-27 00:00:00 2023-05-27 00:00:00 Outpatient HUNDL, BRET CONNOR [id number] [facility] 2023-05-18 14:00:00 2023-05-18 14:00:00 Outpatient [facility] [id number] [facility] 2023-05-12 00:00:00 2023-05-12 00:00:00 Outpatient MEE CONNOR [id number] [facility] 2023-05-02 00:00:00 2023-05-02 00:00:00 Outpatient HUNDL, [id number] [facility] 2023-[facility]01 16:00:00 2023-04-01 16:00:00 Outpatient [facility] MACHUCA [id number] [facility] 2023-04-01 00:00:00 2023-04-01 00:00:00 Outpatient HUNDL, BRET CONNOR [id number] [facility] 2023-04-01 00:00:00 2023-04-01 00:00:00 Outpatient CLAYTON ARRIETA [id number] [facility] 2023-03-30 00:00:00 2023-03-30 00:00:00 Outpatient HUNDL, BRET CONNOR [id number] [facility] 2023-03-30 00:00:00 2023-03-30 00:00:00 Outpatient HUNDL, BRET CONNOR [id number] [facility] 2023-03-28 14:00:00 2023-03-28 14:00:00 Outpatient HUNDL, BRET CONNOR [id number] Mee Sesegundo 2023-03-28 00:00:00 2023-03-28 00:00:00 Outpatient BRET BEAR MEE CONNOR [id number] Mee Alves 2023-03-28 00:00:00 2023-03-28 00:00:00 Outpatient SANCHEZ DAMIAN MEE CONNOR [id number] [facility] 2023-02-24 00:00:00 2023-02-24 00:00:00 [facility] [id number] [facility] 2022-11-22 00:00:00 2022-11-22 00:00:00 Outpatient ROBERT MACHUCA [id number] [facility] 2022-11-19 11:30:00 2022-11-19 11:30:00 Outpatient BALTA DU [facility] [id number] [facility] 2022-11-09 09:15:00 2022-11-09 09:15:00 Outpatient ROBERT MACHUCA [id number] [facility] 2022-11-09 00:00:00 2022-11-09 00:00:00 Outpatient ROBERT MACHUCA [id number] [facility] 2022-11-09 00:00:00 2022-11-09 00:00:00 Patient Secure Msg Doctor Unassigned, [place] [facility] [id number] [facility] 2022-11-04 00:00:00 2022-11-04 00:00:00 Outpatient BALTA [facility]D [facility] [id number] [facility] 2022-11-04 00:00:00 2022-11-04 00:00:00 Outpatient BALTA DU [facility] [id number] [facility] 2022-11-03 00:00:00 2022-11-03 00:00:00 Telephone Balta Grant [facility] J[facility]AN[facility] [id number] [id number] [facility] 2022-10-22 11:15:00 2022-10-22 11:32:32 Senior Regulatory Affairs Specialist Visit Lab, James Goins Balta [facility] JUAN?[facility] 1.2.840.114 350.1.13.10 4.2.7.2.686 [id number] [facility] 2022-10-22 10:00:00 2022-10-22 11:18:28 Outpatient R BALTA GRANT BALTA [facility] [id number] [facility] 2022-10-22 10:00:00 2022-10-22 11:18:28 Office Visit Balta [facility] 1.2.840.114 350.1.13.10 4.2.7.2.686 [id number] [facility] 2022-10-07 00:00:00 2022-10-07 00:00:00 Telephone Balta [facility] 1.2.840.114 350.1.13.10 4.2.7.2.686 [id number] [facility] 2022-09-25 11:44:00 2022-09-25 14:16:00 Emergency X STEVE AGUILAR [facility] ERT [id number] [facility] 2022-09-25 11:44:00 2022-09-25 14:16:00 Emergency Steve Aguilar F [facility] [id number] 350.1.13.10 4.2.7.2.686 [id number] [facility] 2022-09-23 10:59:35 2022-09-23 10:59:35 Outpatient [facility] [id number] Roberth Meehan 2020-05-23 10:26:14 2020-05-23 11:24:00 Office Visit Enio Almanzar [facility] 1.2840.114 350.1.13.10 4.2.7.2.686 [id number] [facility] 2020-05-23 10:30:00 2020-05-23 10:30:00 Outpatient ENIO GUPTA [facility] [id number] [facility] 2020-05-23 00:00:00 2020-05-23 00:00:00 Orders Only Doctor Unassigned, [place] [facility] 1.2840.114 350.1.13.10 4.2.7.2.686 [id number] [facility] 2020-05-14 13:40:35 2020-05-14 14:11:09 Office Visit Enio Almanzar [facility] 1.0.114 350.1.13.10 4.2.7.2.686 [id number] [facility] 2020-05-14 13:30:00 2020-05-14 13:30:00 Outpatient R ENIO ALMANZAR [facility] [id number] [facility] 2020-05-08 00:00:00 2020-05-08 00:00:00 Transition of Care Gladys Mccarty 1.2840.114 350.1.13.10 4.2.7.2.686 [id number] [facility] 2020-05-06 08:36:00 2020-05-07 14:05:00 Hospital Encounter James Salmon Adnan [facility] 1.2.840.114 350.1.13.10 4.2.7.2.686 [id number] [facility] 2020-05-06 08:27:00 2020-05-06 08:27:[address] [facility] [id number] [facility] 2020-05-06 00:00:00 2020-05-06 00:00:00 Orders Only Doctor Unassigned, [place] [facility] 1.2.840.114 350.1.13.10 4.2.7.2.686 [id number] [facility] 2020-04-17 15:33:00 2020-04-19 12:50:00 Hospital Encounter Carlene Osorio [facility] 1.2840.114 350.1.13.10 4.2.7.2.686 [id number] [facility] Results Test Description Test Time Test Comments Results Result Co mments Source [facility] 19:15:26* Test Item Value Reference Range Interpretation Comme nts LIPASE (test code = 7188942976) 133 U/L 0-220 Lab Interpretation (test cod e = 67173-8) Normal [facility] WITH [id number] 19:01:22* Test Item Value Reference Range Interpretation Comme nts WBC (test code = 6690-2) 7.74 See_Comment [Automated [employer]] The system which generated this result transmitted reference range: 4.20 - 10.70 10*3/?L. The reference range was not used to interpret this result as normal/abnormal. RBC (test code = 789-8) 5.06 See_Comment [Automated [employer]] The system which generated this result transmitted reference range: 4.26 - 5.52 10*6/?L. The reference range was not used to interpret this result as normal/abnormal. HGB (test code = 718-7) 15.9 g/dL 12.2-16.4 HCT (test code = 4544-3) 45.5 % 38.4-49.3 MCV (test code = 787-2) 89.9 fL 81.7-95.6 MCH (test code = 785-6) 31.4 pg 26.1-32.7 MCHC (test code = 786-4) 34.9 g/dL 31.2-35.0 RDW-SD (test code = 75760-9) 41.1 fL 38.5-51.6 RDW-CV (test code = 788-0) 12.4 % 12.1-15.4 PLT (test code = 777-3) 231 See_Comment [Automated [employer]] The system which generated this result transmitted reference range: 150 - 328 10*3/?L. The reference range was not used to interpret this result as normal/abnormal. MPV (test code = 57172-7) 9.9 fL 9.8-13.0 NRBC/100 WBC (test code = 0040384667) 0.0 See_Comment [Automated [employer] ssage] The system which generated this result transmitted reference range: 0.0 - 10.0 /100 WBCs. The reference range was not used to interpret this result as normal/abnormal. NRBC x10^3 (test code = 2002520205) See_Comment [Automated [employer]] The system which generated this result transmitted reference range: 10*3/?L. The reference range was not used to interpret this result as normal/abnormal. GRAN MAT (NEUT) % (test code = 770-8) 68.5 % IMM GRAN % (test code = 7368553288) 0.30 % LYMPH % (test code = 736-9) 24.5 % MONO % (test code = 5905-5) 6.1 % EOS % (test code = 713-8) 0.1 % BASO % (test code = 706-2) 0.5 % GRAN MAT x10^3(ANC) (test code = 2388974956) 5.30 10*3/uL 1.99-6.95 IMM GRAN x10^3 (test code = 9252655063) 0.00-0.06 LYMPH x10^3 (test code = 731-0) 1.90 10*3/uL 1.09-3.23 MONO x10^3 (test code = 742-7) 0.47 10*3/uL 0.36-1.02 EOS x10^3 (test code = 711-2) 0.06-0.53 L BASO x10^3 (test code = 704-7) 0.04 10*3/uL 0.01-0.09 Lab Interpretation (test code = 17074-9) Abnormal [facility]way[facility]-TERMINAL [id number] 11:35:00* Test Item Value Reference Range Interpretation Comme nts NT-proBNP (test code = 2618939186) 425 pg/mL See_Comment H [Automated message] The system which generated this result transmitted reference range: <=125. The reference range was not used to interpret this result as normal/abnormal. PARUL (test code = PARUL) Biotin has been reported to cause a negative bias, interpret results relative to patient's use of biotin. Lab Interpretation (test code = 71495-4) Abnormal [facility]wayLIPID PANEL (05292)(TOTAL CHOLESTEROL, TRIGLYCERIDES, HDL)2020-05-07 11:29:00* Test Item Value Reference Range Interpretation Comme nts CHOL (test code = 1296163317) 119 mg/dL 120-200 L HDL (test code = 0952321221) 17 mg/dL >40 L HDLC RATIO (test code = 5519819516) See_Comment H [Automated [employer]] The system which generated this result transmitted reference range: <=5.0. The reference range was not used to interpret this result as normal/abnormal. TRIG (test code = 3100164339) 93 mg/dL 30-170 LDL CHOL (test code = 23524-5) 83 mg/dL See_Comment [Automated [employer]] The system which generated this result transmitted reference range: <=160. The reference range was not used to interpret this result as normal/abnormal. VLDL (test code = 1305843755) 19 mg/dL 5-60 Lab Interpretation (test code = 70217-4) Abnormal [facility]wayCOMP. METABOLIC PANEL (96019)2020-05-07 11:29:00* Test Item Value Reference Range Interpretation Comme nts NA (test code = 1282409377) 135 mmol/L 135-145 K (test code = 0007314264) 3.9 mmol/L 3.5-5 CL (test code = 7912525031) 98 mmol/L 98-108 CO2 TOTAL (test code = 9249979652) 28 mmol/L 23-31 AGAP (test code = 8309663225) 2-16 BUN (test code = 9841663337) 11 mg/dL 7-23 GLUCOSE (test code = 3607663860) 94 mg/dL 70-110 CREATININE (test code = 3712027830) 0.85 mg/dL 0.6-1.25 TOTAL BILI (test code = 0669081713) 0.7 mg/dL 0.1-1.1 CALCIUM (test code = 3704754959) 8.7 mg/dL 8.6-10.6 T PROTEIN (test code = 1037189786) 6.1 g/dL 6.3-8.2 L ALBUMIN (test code = 3768604753) 3.0 g/dL 3.5-5 L ALK PHOS (test code = 8908677340) 67 U/L 34-122 ALTv (test code = 1742-6) 33 U/L 5-50 AST(SGOT) (test code = 2712437469) 26 U/L 13-40 eGFR Calculation (Non-) (test code = 1778695925) mL/min/1.73m2 eGFR Calculation () (test code = 2384151422) mL/min/1.73m2 PARUL (test code = PARUL) Association of Glomerular Filtration Rate (GFR) and Staging of Kidney Disease* + --+ --+ ------+| GFR (mL/min/1.73 m2) ?| With Kidney Damage ?| ?Without Kidney Damage+ --------+ --------+ +| ?>90 ?| ?Stage one ?| ? Normal ?+ ---+ ---+ -------+| ?60-89 ?| ?Stage two ?| ? Decreased GFR ? + --+ --+ ------+| ?30-59 ?| ?Stage three ?| ? Stage three ? + --+ --+ ------+| ?15-29 ?| ?Stage four ? | ? Stage four ?+ ---+ ---+ -------+| ?<15 (or dialysis) ? ?| ?Stage five ? | ? Stage five ?+ ---+ ---+ -------+ *Each stage assumes the associated GFR level has been in effect for at least three months. ?Stages 1 to 5, with or without kidney disease, indicate chronic kidney disease. Notes: Determination of stages one and two (with eGFR >59mL/min/1.73 m2) requires estimation of kidney damage for at least three months as defined by structural or functional abnormalities of the kidney, manifested by either:Pathological abnormalities or Markers of kidney damage (including abnormalities in the composition of the blood or urine or abnormalities in imaging tests). Lab Interpretation (test code = 99295-5) Abnormal [facility]way[facility]IUM2020-09-23 11:29:00* Test Item Value Reference Range Interpretation Comme nts MAGNESIUM (test code = 2238879498) 2.0 mg/dL 1.7-2.4 Lab Interpretation (test cod e = 69389-5) Normal [facility]wayPHOSPHORUS2020-09-23 11:29:00* Test Item Value Reference Range Interpretation Comme nts PHOSPHORUS (test code = 9349480275) 3.4 mg/dL 2.5-5 Lab Interpretation (test cod e = 18753-6) Normal [facility] LakewayPROTHROMBIN TIME / [id number] 11:21:00* Test Item Value Reference Range Interpretation Comme nts PROTIME PATIENT (test code = 5964-2) See_Comment H [Automated [employer]] The system which generated this result transmitted reference range: 12.0 - 14.7 Seconds. The reference range was not used to interpret this result as normal/abnormal. INR (test code = 6301-6) Normal INR <1.1; Warfarin Therapeutic range 2.0 to 3.0 or 2.5 to 3.5, depending upon the indications. Lab Interpretation (test code = 84035-5) Abnormal [facility]wayCBC WITH [id number] 11:16:00* Test Item Value Reference Range Interpretation Comme nts WBC (test code = 6690-2) See_Comment [Automated [employer]] The system which generated this result transmitted reference range: 4.20 - 10.70 10*3/?L. The reference range was not used to interpret this result as normal/abnormal. RBC (test code = 789-8) See_Comment L [Automated messa ge] The system which generated this result transmitted reference range: 4.26 - 5.52 10*6/?L. The reference range was not used to interpret this result as normal/abnormal. HGB (test code = 718-7) 13.2 g/dL 12.2-16.4 HCT (test code = 4544-3) 38.1 % 38.4-49.3 L MCV (test code = 787-2) 90.3 fL 81.7-95.6 MCH (test code = 785-6) 31.3 pg 26.1-32.7 MCHC (test code = 786-4) 34.6 g/dL 31.2-35 RDW-SD (test code = 83928-5) 40.2 fL 38.5-51.6 RDW-CV (test code = 788-0) 12.3 % 12.1-15.4 PLT (test code = 777-3) See_Comment [Automated messa ge] The system which generated this result transmitted reference range: 150 - 328 10*3/?L. The reference range was not used to interpret this result as normal/abnormal. MPV (test code = 48302-7) 10.5 fL 9.8-13 NRBC/100 WBC (test code = 4027524383) See_Comment [Automated [employer] ssage] The system which generated this result transmitted reference range: 0.0 - 10.0 /100 WBCs. The reference range was not used to interpret this result as normal/abnormal. NRBC x10^3 (test code = 4435509063) <0.01 See_Comment [Automated messa ge] The system which generated this result transmitted reference range: 10*3/?L. The reference range was not used to interpret this result as normal/abnormal. GRAN MAT (NEUT) % (test code = 770-8) 74.2 % IMM GRAN % (test code = 2817591821) 0.50 % LYMPH % (test code = 736-9) 12.7 % MONO % (test code = 5905-5) 12.1 % EOS % (test code = 713-8) 0.2 % BASO % (test code = 706-2) 0.3 % GRAN MAT x10^3(ANC) (test code = 2380305996) 7.40 10*3/uL 1.99-6.95 H IMM GRAN x10^3 (test code = 4558367981) 0.05 10*3/uL 0-0.06 LYMPH x10^3 (test code = 731-0) 1.27 10*3/uL 1.09-3.23 MONO x10^3 (test code = 742-7) 1.21 10*3/uL 0.36-1.02 H EOS x10^3 (test code = 711-2) <0.03 0.06-0.53 L BASO x10^3 (test code = 704-7) 0.03 10*3/uL 0.01-0.09 Lab Interpretation (test code = 35704-4) Abnormal [facility] LakewayGLYCOSYLATED HEMOGLOBIN (A1C)2020-05-06 21:42:00* Test Item Value Reference Range Interpretation Comme nts HGB A1C (test code = 4548-4) 5.3 % 4-6 PARUL (test code = PARUL) %A1C (NGSP) Interpretation (ADA)4.8-5.6 ? ? Normal or (Non-Diabetic Range)5.7-6.4 ? ? Increased Risk (Pre-Diabetic)>6.5 ?Diabetes Indicated Lab Interpretation (test code = 08403-8) Normal [facility] LakewayTHYROID STIMULATING [id number] 21:24:00 * Test Item Value Reference Range Interpretation Comme nts TSH (test code = 4337735728) See_Comment [Automated [employer]] The system which generated this result transmitted reference range: 0.45 - 4.70 mIU/L. The reference range was not used to interpret this result as normal/abnormal. Lab Interpretation (test code = 70330-2) Normal [facility] LakewayIR DRAINAGE BY CATHETER SOFT [id number] 21:16:37HISTORY: Right abdominal wall abscess. COMPARISON: Today's CT scan abdomen pelvis. TECHNIQUE: Ultrasound study was initially performed of the area of complexfluid collection in the right rectus muscle. FINDINGS: Using local anesthesia with sterile precautions, 8 Stateless pigtailcatheter was advanced into the abscess cavity. Due to multiple loculations,however, only 15 mL of foul- smelling pus was retrieved. Lavage was done of the abscess cavity using 5 mL of saline, however, onlyadditional small amount of pus could be aspirated. Pigtail of the catheter was performed using external string. Small bag wasattached to the external port and patient was transferred back to theemergency room in stablecondition. CONCLUSIONS: Ultrasound-guided percutaneous aspiration of right rectusmuscle abscess. Due to multiple loculations, only 15 mL of foul smellingpus was retrieved. Therefore, percutaneous abscess drainage may not becompletely successful. Samples obtained and sent for gram staining as well as culture andsensitivity studies. [facility] Results Inft User - 05/06/2020 4:17 PM CDTHISTORY: Right abdominal wall abscess.COMPARISON: Today's CT scan abdomen pelvis.TECHNIQUE: Ultrasound study was initially performed of the area of complexfluid collection in the right rectus muscle.FINDINGS: Using local anesthesia with sterile precautions, 8 Stateless pigtailcatheter was advanced into the abscess cavity. Due to multiple loculations,however, only 15 mL of foul- smelling pus was retrieved.Lavagewas done of the abscess cavity using 5 mL of saline, however, onlyadditional small amount of pus could be aspirated.Pigtail of the catheter was performed using external string. Small bag wasattached to the external port and patient was transferred back to theemergency room in stable condition.CONCLUSIONS: Ultrasound-guided percutaneous aspiration of right rectusmuscle abscess. Due to multiple loculations, only 15 mL of foul smellingpus was retrieved. Therefore, percutaneous abscess drainage maynot becompletely successful.Samples obtained and sent for gram staining as well as culture andsensitivity studies.[facility]wayURIC ACID 2020-05-06 20:52:00* Test Item Value Reference Range Interpretation Comme nts URIC ACID (test code = 5129138010) 4.8 mg/dL 3.6-8 Lab Interpretation (test cod e = 67543-5) Normal [facility] LakewayCREATINE [id number] 20:52:00* Test Item Value Reference Range Interpretation Comme nts CK (test code = 7321811446) 81 U/L 33-194 Lab Interpretation (test cod e = 59005-4) Normal [facility] LakewayCT ABDOMEN PELVIS W [id number] 15:56:34CT Abdomen and Pelvis with intravenous contrast. CLINICAL HISTORY: Generalized abdominal pain with fever. S/P appendectomyon 04/19/2020. DOSE: Up-to-date CT equipment and radiation dose reduction techniques wereemployed. CTDIvol: 6.51 mGy. DLP: 355 mGy-cm. TECHNIQUE : Contiguous axial imaging from the level of the lung basesthrough the pubic symphysis were performed after the uncomplicatedadministration of Omnipaque contrast material. Coronal and sagittalreconstructions were obtained. Auto mA and/or iterative reconstruction wereused to reduce radiation dose. FINDINGS: ? Lower lungs: Clear. No pleural effusion or pericardial effusion. Shortsliding hiatal hernia suspected. Liver, Gallbladder and Spleen: Liver is 14.2 cm in length and showedirregular shaped 4.1 cm sized cystic lesion in the left lobe and a small 10mm cystic lesion in the lower right lobe. No calcified gallstones. Spleenis approximately 11 x 3.5 cm. Peritoneum: ?No free air or free fluid. Reactive subcentimeter-sized rightlo wer quadrant lymphadenopathy. Pancreas and Adrenals: ?Unremarkable pancreas and adrenal glands. Kidneys and Ureters: ?No visible calculi in the renal collecting systems. No hydronephrosis. Mild fullness noted in both ureters without any apparentcause. 19 mm cyst noted in the lateral lower pole of the right kidney. Vessels: Motion compromises the detail of short segment of lower abdominalaorta. Retroperitoneum: No abnormal fluid or lymphadenopathy. Bowel: Postoperative changes of recent appendectomy with congestion of thefat in the right lower abdomen. No free intraperitoneal air or free fluid. Bladder and Reproductive Organs: Unremarkable urinary bladder. Prostategland is slightly enlarged with focal central zone calcifications noted. Bones: Moderate degenerative disc disease at L5-S1. Soft tissues: Small indirect type left inguinal hernia and lipoma withinthe right testicular cord.2 x 1 cm size fat-containing umbilical hernia. Right rectus muscle is enlarged due to an irregular shaped multilocular 5 x3.4 x 4.9 cm size abscess with mild enhancement of its capsule. CONCLUSION:1. Enlarged infraumbilical portion of the right rectus muscle due tomultilocular abscess.2. Mild congestionof the intra-abdominal fat in the right lower abdomenfrom recent appendectomy without any intra-abdominal abscess. Dem[facility], Radiant Results Inft User - 05/06/2020 10:57 AM CDTCT Abdomen and Pelvis with i ntravenous contrast.CLINICAL HISTORY: Generalized abdominal pain with fever. S/P appendectomyon 04/19/2020.DOSE: Up-to-date CT equipment and radiation dose reduction techniques wereemployed. CTDIvol: 6.51 mGy. DLP: 355 mGy-cm.TECHNIQUE : Contiguous axial imaging from the level of the lung basesthrough the pubic symphysis were performed after the uncomplicatedadministration of Omnipaque contrast material. Coronal and sagittalreconstructions were obtained. Auto mA and/or iterative reconstruction wereused to reduce radiation dose.FINDINGS: Lower lungs: Clear. No pleural effusion or pericardial effusion. Shortsliding hiatal hernia suspected.Liver, Gallbladder and Spleen: Liver is 14.2 cm in length and showedirregular shaped 4.1 cm sized cystic lesion in the left lobe and a small 10mm cystic lesion in the lower right lobe. No calcified gallstones. Spleenis approximately 11 x 3.5 cm.Peritoneum:No free air or free fluid. Reactive subcentimeter-sized rightlower quadrant lymphadenopathy.Pancreas and Adrenals: Unremarkable pancreas and adrenal glands.Kidneys and Ureters: No visible calculi in the renal collecting systems. No hydronephrosis. Mild fullness noted in both ureters without any apparentcause. 19 mm cyst noted in the lateral lower pole of the right kidney. Vessels: Motion compromises the detail of short segment of lower abdominalaorta.Retroperitoneum: No abnormal fluid or lymphadenopathy.Bowel: Postoperative changes of recent appendectomy with congestion of thefat in the rightlower abdomen. No free intraperitoneal air or free fluid.Bladder and Reproductive Organs: Unremarkable urinary bladder. Prostategland is slightly enlarged with focal central zone calcifications noted. Bones: Moderate degenerative disc disease at L5-S1.Soft tissues: Small indirect type left inguinal hernia and lipoma withinthe right testicular cord.2 x 1 cm size fat-containing umbilical hernia.Right rectus muscle is enlarged due to an irregular shaped multilocular 5 x3.4 x 4.9 cm size abscess with mild enhancement of its capsule.CONCLUSION:1. Enlarged infraumbilical portion of the right rectus muscle due tomultilocular abscess.2. Mild congestion of the intra-abdominal fat in the right lower abdomenfrom recent appendectomy without any intra-abdominal abscess.[facility]wayURINALYSIS2020-09-22 15:08:00* Test Item Value Reference Range Interpretation Comme nts APPEARANCE (test code = 9744971558) Clear Clear COLOR (test code = 8878700871) Yellow Yellow PH (test code = 3340029538) 4.8-8.0 SP GRAVITY (test code = 0234266060) 1.003-1.030 GLU U QUAL (test code = 7012029032) Normal Normal BLOOD (test code = 9157763085) 1+ Negative A KETONES (test code = 1622832105) 20 mg/dL Negative A PROTEIN (test code = 2887-8) Negative Negative UROBILIN (test code = 9155637935) Normal Normal BILIRUBIN (test code = 0512748644) Negative Negative NITRITE (test code = 3002479539) Negative Negative LEUK SPIKE (test code = 4423520352) Negative Negative RBC/HPF (test code = 9591296976) See_Comment [Automated [employer]] The system which generated this result transmitted reference range: 0 - 3 HPF. The reference range was not used to interpret this result as normal/abnormal. WBC/HPF (test code = 5213823119) See_Comment [Automated [employer]] The system which generated this result transmitted reference range: 0 - 5 HPF. The reference range was not used to interpret this result as normal/abnormal. BACTERIA (test code = 5511890215) Negative Negative MUCOUS (test code = 0706503823) Slight Negative LPF A Lab Interpretation (test code = 81280-4) Abnormal [facility] LakewayCBC WITH [id number] 14:48:00* Test Item Value Reference Range Interpretation Comme nts WBC (test code = 6690-2) See_Comment H [Automated message] The system which generated this result transmitted reference range: 4.20 - 10.70 10*3/?L. The reference range was not used to interpret this result as normal/abnormal. RBC (test code = 789-8) See_Comment [Automated message] The system which generated this result transmitted reference range: 4.26 - 5.52 10*6/?L. The reference range was not used to interpret this result as normal/abnormal. HGB (test code = 718-7) 13.7 g/dL 12.2-16.4 HCT (test code = 4544-3) 39.0 % 38.4-49.3 MCV (test code = 787-2) 88.8 fL 81.7-95.6 MCH (test code = 785-6) 31.2 pg 26.1-32.7 MCHC (test code = 786-4) 35.1 g/dL 31.2-35 H RDW-SD (test code = 66855-9) 38.7 fL 38.5-51.6 RDW-CV (test code = 788-0) 11.9 % 12.1-15.4 L PLT (test code = 777-3) See_Comment H [Automated message] The system which generated this result transmitted reference range: 150 - 328 10*3/?L. The reference range was not used to interpret this result as normal/abnormal. MPV (test code = 34952-0) 9.6 fL 9.8-13 L NRBC/100 WBC (test code = 2380751442) See_Comment [Automated message] The system which generated this result transmitted reference range: 0.0 - 10.0 /100 WBCs. The reference range was not used to interpret this result as normal/abnormal. NRBC x10^3 (test code = 2847879381) <0.01 See_Comment [Automated message] The system which generated this result transmitted reference range: 10*3/?L. The reference range was not used to interpret this result as normal/abnormal. GRAN MAT (NEUT) % (test code = 770-8) 80.6 % IMM GRAN % (test code = 6037914598) 0.50 % LYMPH % (test code = 736-9) 7.8 % MONO % (test code = 5905-5) 10.7 % EOS % (test code = 713-8) 0.0 % BASO % (test code = 706-2) 0.4 % GRAN MAT x10^3(ANC) (test code = 9227180543) 12.76 10*3/uL 1.99-6.95 H IMM GRAN x10^3 (test code = 7341577528) 0.08 10*3/uL 0-0.06 H LYMPH x10^3 (test code = 731-0) 1.23 10*3/uL 1.09-3.23 MONO x10^3 (test code = 742-7) 1.69 10*3/uL 0.36-1.02 H EOS x10^3 (test code = 711-2) <0.03 0.06-0.53 L BASO x10^3 (test code = 704-7) 0.06 10*3/uL 0.01-0.09 Lab Interpretation (test code = 07835-4) Abnormal [facility]wayCOVID-19 (ID NOW RAPID TESTING)2020-05-06 14:37:00* Test Item Value Reference Range Interpretation Comme nts SARS-CoV-2 Rapid ID NOW (test code = 80448-9) Not Detected Not Detected PARUL (test code = PARUL) ID NOW COVID-19 As say is an isothermal nucleic acid amplification test intended for the qualitative detection of nucleic acid from SARS-CoV-2 viral RNA in nasopharyngeal (REIMBURSEMENT MANAGER) specimens. It is used under Emergency Use Authorization (EUA) by FDA. The limit of detection (LOD) of the assay is 125 Genome Equivalents/mL. A positive result is indicative of the presence of SARS-CoV-2 RNA. ?Clinical correlation with patient history and other diagnostic information is necessary to determine patient infection status. A negative (Not Detected) result does not preclude SARS-CoV-2 infection. In patients with clinical symptoms and other tests that are consistent with SARS-CoV-2 infection, negative results should be treated as presumptive negative and a new specimen should be tested with alternative PCR molecular test. Invalid: Please collect a new specimen for repeat patient testing if clinically indicated. Lab Interpretation (test code = 18340-2) Normal [facility]wayLactic Acid Whole [id number] 14:29:00* Test Item Value Reference Range Interpretation Comme nts LACTIC ACID (test code = 0572963476) 1.01 mmol/L [facility] LakewayCOMP. METABOLIC PANEL (34042)2020-05-06 14:28:00* Test Item Value Reference Range Interpretation Comme nts NA (test code = 5023648519) 132 mmol/L 135-145 L K (test code = 6546055093) 4.0 mmol/L 3.5-5 CL (test code = 6544965216) 95 mmol/L 98-108 L CO2 TOTAL (test code = 3819458598) 25 mmol/L 23-31 AGAP (test code = 7696135608) 2-16 BUN (test code = 0034287642) 18 mg/dL 7-23 GLUCOSE (test code = 2293796232) 128 mg/dL 70-110 H CREATININE (test code = 0830792307) 0.85 mg/dL 0.6-1.25 TOTAL BILI (test code = 9270477840) 0.9 mg/dL 0.1-1.1 CALCIUM (test code = 5803104648) 9.3 mg/dL 8.6-10.6 T PROTEIN (test code = 6696021416) 7.3 g/dL 6.3-8.2 ALBUMIN (test code = 3333782932) 3.8 g/dL 3.5-5 ALK PHOS (test code = 5873336440) 87 U/L 34-122 ALTv (test code = 1742-6) 33 U/L 5-50 AST(SGOT) (test code = 2128642984) 24 U/L 13-40 eGFR Calculation (Non-) (test code = 8604290937) mL/min/1.73m2 eGFR Calculation () (test code = 7082336873) mL/min/1.73m2 PARUL (test code = PARUL) Association of Glomerular Filtration Rate (GFR) and Staging of Kidney Disease* + --+ --+ ------+| GFR (mL/min/1.73 m2) ?| With Kidney Damage ?| ?Without Kidney Damage+ --------+ --------+ +| ?>90 ?| ?Stage one ?| ? Normal ?+ ---+ ---+ -------+| ?60-89 ?| ?Stage two ?| ? Decreased GFR ? + --+ --+ ------+| ?30-59 ?| ?Stage three ?| ? Stage three ? + --+ --+ ------+| ?15-29 ?| ?Stage four ? | ? Stage four ?+ ---+ ---+ -------+| ?<15 (or dialysis) ? ?| ?Stage five ? | ? Stage five ?+ ---+ ---+ -------+ *Each stage assumes the associated GFR level has been in effect for at least three months. ?Stages 1 to 5, with or without kidney disease, indicate chronic kidney disease. Notes: Determination of stages one and two (with eGFR >59mL/min/1.73 m2) requires estimation of kidney damage for at least three months as defined by structural or functional abnormalities of the kidney, manifested by either:Pathological abnormalities or Markers of kidney damage (including abnormalities in the composition of the blood or urine or abnormalities in imaging tests). Lab Interpretation (test code = 73579-2) Abnormal [facility] LakewayLIPID PANEL (48247)(TOTAL CHOLESTEROL, TRIGLYCERIDES, HDL)2020-05-06 14:28:00* Test Item Value Reference Range Interpretation Comme nts CHOL (test code = 8019813422) 154 mg/dL 120-200 HDL (test code = 5763929570) 26 mg/dL >40 L HDLC RATIO (test code = 3415385875) See_Comment H [Automated [employer]] The system which generated this result transmitted reference range: <=5.0. The reference range was not used to interpret this result as normal/abnormal. TRIG (test code = 9779892951) 79 mg/dL 30-170 LDL CHOL (test code = 56986-5) 112 mg/dL See_Comment [Automated [employer]] The system which generated this result transmitted reference range: <=160. The reference range was not used to interpret this result as normal/abnormal. VLDL (test code = 9186676224) 16 mg/dL 5-60 Lab Interpretation (test code = 34710-6) Abnormal [facility]wayLIPASE2020-09-22 14:27:00* Test Item Value Reference Range Interpretation Comme nts LIPASE (test code = 4168050318) 59 U/L 0-220 Lab Interpretation (test cod e = 55530-9) Normal [facility]wayCB WITH [id number] 14:01:00* Test Item Value Reference Range Interpretation Comme nts WBC (test code = 6690-2) See_Comment H [Automated message] The system which generated this result transmitted reference range: 4.20 - 10.70 10*3/?L. The reference range was not used to interpret this result as normal/abnormal. RBC (test code = 789-8) See_Comment L [Automated message] The system which generated this result transmitted reference range: 4.26 - 5.52 10*6/?L. The reference range was not used to interpret this result as normal/abnormal. HGB (test code = 718-7) 12.7 g/dL 12.2-16.4 HCT (test code = 4544-3) 36.7 % 38.4-49.3 L MCV (test code = 787-2) 92.7 fL 81.7-95.6 MCH (test code = 785-6) 32.1 pg 26.1-32.7 MCHC (test code = 786-4) 34.6 g/dL 31.2-35 RDW-SD (test code = 65818-4) 45.0 fL 38.5-51.6 RDW-CV (test code = 788-0) 13.1 % 12.1-15.4 PLT (test code = 777-3) See_Comment [Automated message] The system which generated this result transmitted reference range: 150 - 328 10*3/?L. The reference range was not used to interpret this result as normal/abnormal. MPV (test code = 27376-2) 11.6 fL 9.8-13 NRBC/100 WBC (test code = 2650196310) See_Comment [Automated message] The system which generated this result transmitted reference range: 0.0 - 10.0 /100 WBCs. The reference range was not used to interpret this result as normal/abnormal. NRBC x10^3 (test code = 7847870446) <0.01 See_Comment [Automated message] The system which generated this result transmitted reference range: 10*3/?L. The reference range was not used to interpret this result as normal/abnormal. GRAN MAT (NEUT) % (test code = 770-8) 90.3 % IMM GRAN % (test code = 0494477598) 0.50 % LYMPH % (test code = 736-9) 6.0 % MONO % (test code = 5905-5) 3.1 % EOS % (test code = 713-8) 0.0 % BASO % (test code = 706-2) 0.1 % GRAN MAT x10^3(ANC) (test code = 8107255665) 13.34 10*3/uL 1.99-6.95 H IMM GRAN x10^3 (test code = 6527530950) 0.08 10*3/uL 0-0.06 H LYMPH x10^3 (test code = 731-0) 0.89 10*3/uL 1.09-3.23 L MONO x10^3 (test code = 742-7) 0.46 10*3/uL 0.36-1.02 EOS x10^3 (test code = 711-2) <0.03 0.06-0.53 L BASO x10^3 (test code = 704-7) <0.03 0.01-0.09 Lab Interpretation (test code = 98405-5) Abnormal [facility] LakewayURINE [id number] 10:54:00* Test Item Value Reference Range Interpretation Comme nts URINE CULTURE (test code = 630-4) No aerobic growth (< 1000 CFU/mL) [facility] LakewayMagnesium Mjmfg2740-63-18 09:49:00* Test Item Value Reference Range Interpretation Comme nts MAGNESIUM (test code = 1456582959) 1.9 mg/dL 1.7-2.4 Lab Interpretation (test cod e = 65435-3) Normal [facility] LakewayBasi Metabolic Panel (NA, K, CL, CO2, GLUCOSE, BUN, CREATININE, CA)2020-04-18 09:48:00* Test Item Value Reference Range Interpretation Comme nts NA (test code = 7425305770) 139 mmol/L 135-145 K (test code = 1956688018) 4.5 mmol/L 3.5-5 CL (test code = 5404275407) 106 mmol/L 98-108 CO2 TOTAL (test code = 1962218596) 29 mmol/L 23-31 AGAP (test code = 1734612092) 2-16 BUN (test code = 6425470339) 29 mg/dL 7-23 H GLUCOSE (test code = 6123566360) 111 mg/dL 70-110 H CREATININE (test code = 6310461523) 1.39 mg/dL 0.6-1.25 H CALCIUM (test code = 7639108848) 8.7 mg/dL 8.6-10.6 eGFR Calculation (Non-) (test code = 7880902447) mL/min/1.73m2 eGFR Calculation () (test code = 3126114278) mL/min/1.73m2 PARUL (test code = PARUL) Association of Glomerular Filtration Rate (GFR) and Staging of Kidney Disease* + --+ --+ ------+| GFR (mL/min/1.73 m2) ?| With Kidney Damage ?| ?Without Kidney Damage+ --------+ --------+ +| ?>90 ?| ?Stage one ?| ? Normal ?+ ---+ ---+ -------+| ?60-89 ?| ?Stage two ?| ? Decreased GFR ? + --+ --+ ------+| ?30-59 ?| ?Stage three ?| ? Stage three ? + --+ --+ ------+| ?15-29 ?| ?Stage four ? | ? Stage four ?+ ---+ ---+ -------+| ?<15 (or dialysis) ? ?| ?Stage five ? | ? Stage five ?+ ---+ ---+ -------+ *Each stage assumes the associated GFR level has been in effect for at least three months. ?Stages 1 to 5, with or without kidney disease, indicate chronic kidney disease. Notes: Determination of stages one and two (with eGFR >59mL/min/1.73 m2) requires estimation of kidney damage for at least three months as defined by structural or functional abnormalities of the kidney, manifested by either:Pathological abnormalities or Markers of kidney damage (including abnormalities in the composition of the blood or urine or abnormalities in imaging tests). Lab Interpretation (test code = 65357-5) Abnormal [facility] LakewayaPTT2020-09-04 09:10:00* Test Item Value Reference Range Interpretation Comme nts APTT Patient (test code = 3173-2) See_Comment [Automated message] The system which generated this result transmitted reference range: 23 - 38 Seconds. The reference range was not used to interpret this result as normal/abnormal. PARUL (test code = PARUL) The [facility] patient population mean normal value for aPTT is 30 seconds. Lab Interpretation (test code = 54330-8) Normal [facility] LakewayPROTHROMBIN TIME / [id number] 09:08:00* Test Item Value Reference Range Interpretation Comme nts PROTIME PATIENT (test code = 5964-2) See_Comment H [Automated messa ge] The system which generated this result transmitted reference range: 12.0 - 14.7 Seconds. The reference range was not used to interpret this result as normal/abnormal. INR (test code = 6301-6) Normal INR <1.1; Warfarin Therapeutic range 2.0 to 3.0 or 2.5 to 3.5, depending upon the indications. Lab Interpretation (test code = 98451-3) Abnormal [facility] LakewayCBC with Posgseqbynig9436-62-10 08:59:00* Test Item Value Reference Range Interpretation Comme nts WBC (test code = 6690-2) See_Comment H [Automated message] The system which generated this result transmitted reference range: 4.20 - 10.70 10*3/?L. The reference range was not used to interpret this result as normal/abnormal. RBC (test code = 789-8) See_Comment [Automated message] The system which generated this result transmitted reference range: 4.26 - 5.52 10*6/?L. The reference range was not used to interpret this result as normal/abnormal. HGB (test code = 718-7) 13.8 g/dL 12.2-16.4 HCT (test code = 4544-3) 40.1 % 38.4-49.3 MCV (test code = 787-2) 93.3 fL 81.7-95.6 MCH (test code = 785-6) 32.1 pg 26.1-32.7 MCHC (test code = 786-4) 34.4 g/dL 31.2-35 RDW-SD (test code = 55732-7) 44.9 fL 38.5-51.6 RDW-CV (test code = 788-0) 13.2 % 12.1-15.4 PLT (test code = 777-3) See_Comment L [Automated message] The system which generated this result transmitted reference range: 150 - 328 10*3/?L. The reference range was not used to interpret this result as normal/abnormal. MPV (test code = 95727-8) 10.7 fL 9.8-13 NRBC/100 WBC (test code = 7903517484) See_Comment [Automated message] The system which generated this result transmitted reference range: 0.0 - 10.0 /100 WBCs. The reference range was not used to interpret this result as normal/abnormal. NRBC x10^3 (test code = 2037783171) <0.01 See_Comment [Automated message] The system which generated this result transmitted reference range: 10*3/?L. The reference range was not used to interpret this result as normal/abnormal. GRAN MAT (NEUT) % (test code = 770-8) 79.9 % IMM GRAN % (test code = 9636761372) 0.50 % LYMPH % (test code = 736-9) 13.2 % MONO % (test code = 5905-5) 6.2 % EOS % (test code = 713-8) 0.0 % BASO % (test code = 706-2) 0.2 % GRAN MAT x10^3(ANC) (test code = 7874184698) 10.35 10*3/uL 1.99-6.95 H IMM GRAN x10^3 (test code = 2821074862) 0.06 10*3/uL 0-0.06 LYMPH x10^3 (test code = 731-0) 1.71 10*3/uL 1.09-3.23 MONO x10^3 (test code = 742-7) 0.80 10*3/uL 0.36-1.02 EOS x10^3 (test code = 711-2) <0.03 0.06-0.53 L BASO x10^3 (test code = 704-7) <0.03 0.01-0.09 Lab Interpretation (test code = 53677-9) Abnormal [facility] LakewayUrinalysis2020-09-03 23:02:00* Test Item Value Reference Range Interpretation Comme nts APPEARANCE (test code = 3111188072) Cloudy Clear A COLOR (test code = 8330182990) Lala Yellow A PH (test code = 3194687693) 4.8-8.0 SP GRAVITY (test code = 5439070785) >1.060 1.003-1.030 H GLU U QUAL (test code = 3488605610) Normal Normal BLOOD (test code = 2205213084) 3+ Negative A KETONES (test code = 0284889988) 20 mg/dL Negative A PROTEIN (test code = 2887-8) 100 mg/dL Negative A UROBILIN (test code = 1314112837) Normal Normal BILIRUBIN (test code = 5149324466) Negative Negative NITRITE (test code = 8234055530) Negative Negative LEUK SPIKE (test code = 6821646124) 250/uL Negative A RBC/HPF (test code = 8399429274) >182 See_Comment H [Automated messa ge] The system which generated this result transmitted reference range: 0 - 3 HPF. The reference range was not used to interpret this result as normal/abnormal. WBC/HPF (test code = 1817015820) See_Comment [Automated messa ge] The system which generated this result transmitted reference range: 0 - 5 HPF. The reference range was not used to interpret this result as normal/abnormal. BACTERIA (test code = 4181003543) Few Negative A YEAST BUD (test code = 0723198038) See_Comment [Automated messa ge] The system which generated this result transmitted reference range: <=1 HPF. The reference range was not used to interpret this result as normal/abnormal. Lab Interpretation (test code = 88719-5) Abnormal [facility] LakewayCOVID-19 (ID NOW RAPID TESTING)2020-04-17 22:21:00* Test Item Value Reference Range Interpretation Comme nts SARS-CoV-2 Rapid ID NOW (test code = 69887-9) Not Detected Not Detected PARUL (test code = PARUL) ID NOW COVID-19 As say is an isothermal nucleic acid amplification test intended for the qualitative detection of nucleic acid from SARS-CoV-2 viral RNA in nasopharyngeal (REIMBURSEMENT MANAGER) specimens. It is used under Emergency Use Authorization (EUA) by FDA. The limit of detection (LOD) of the assay is 125 Genome Equivalents/mL. A positive result is indicative of the presence of SARS-CoV-2 RNA. ?Clinical correlation with patient history and other diagnostic information is necessary to determine patient infection status. A negative (Not Detected) result does not preclude SARS-CoV-2 infection. In patients with clinical symptoms and other tests that are consistent with SARS-CoV-2 infection, negative results should be treated as presumptive negative and a new specimen should be tested with alternative PCR molecular test. Invalid: Please collect a new specimen for repeat patient testing if clinically indicated. Lab Interpretation (test code = 28672-0) Normal [facility] LakewayLactic Acid Whole [id number] 21:55:00* Test Item Value Reference Range Interpretation Comme nts LACTIC ACID (test code = 6073913035) 1.67 mmol/L [facility] Notes Date/Time Note Provider [facility] 15:17:42Upcoming Encounters Health Maintenance Due Date Last Done Comments CT Colonography 1958 Colonoscopy 1960 Colorectal Cancer Screening 1958 FIT-DNA 1958 FIT 1958 FOBT 1960 Medicare Annual Wellness (AWV) 1958 Medicare Initial Physical (IPPE) 1958 Sigmoidoscopy 1958 Annual Physical 1961 DTaP/Tdap/Td Vaccines (1 - Tdap) 1977 Zoster Vaccines (1 of 2) 2008 Pneumococcal Vaccine: 65+ Years (1 of 1 - PCV) 11/24/2023 Influenza Vaccine (#1) 2024 Lipid Panel 05/07/2025 05/07/2020, 05/06/2020 Respiratory Syncytial Virus (RSV) or >=60 (1 - 1-dose 75+ series) 2033 HIB Vaccines Aged Out No longer eligi ble based on patient's age to complete this topic HPV Vaccines Aged Out No longer eligi ble based on patient's age to complete this topic Hepatitis A Vaccines Aged Out No long er eligible based on patient's age to complete this topic Hepatitis B Vaccines Aged Out No long er eligible based on patient's age to complete this topic IPV Vaccines Aged Out No longer eligi ble based on patient's age to complete this topic Meningococcal Vaccine Aged Out No nya silvana eligible based on patient's age to complete this topic Rotavirus Vaccines Aged Out No longer eligible based on patient's age to complete this topic [facility] HospitalLlgsgda4592-97-35 15:17:[address] [facility] [address] HospitalZomvwyo6088-72-16 15:02:52 Ranjit from [facility] called in regards to us obtaining a PA for the patients Austedo and Nuedexta, stated the facility has been paying for the medications but that we need to do the prior authorizations for them. You did order the Austedo at his recent visit but not the Nuedexta. Can you send out a prescription for it so we can begin the PA. NATOR [facility]Wujkafn8477-96-29 18:04:22* Consultation (Routine) - Pending Review Specialty Diagnoses / Procedures Referred By Leslie rodriguez Referred To Contact Neurology Diagnoses [place]'s disease (HCC) Procedures SD OFFICE/OUTPATIENT [facility] 60 MINUTES Loi Lackey MD [address] [place] [address] Phone: tel: fax: Minerva Baxter MD [address] [address] Phone: tel: fax: Referral ID Status Reason Start Date Expiration Date Visits Requested Visits Authorized [id number] Pending Review Specialty Services Required 09/27/2024 03/26/2025 1 1 NATOR [facility] Uhiiunk8848-23-37 18:04:22* [facility] Ebiehll4122-85-62 18:04:22 [facility]63[facility] 18:04:22* Loi Lackey MD - 09/27/2024 10:45 AM LAMINATOR History of Present Illness HPI Has cristian's lost to follow up, insurance. A lot of extra movements. Has been on/off Austedo but had been working well without worsening his depression. Some memory issues as well. Will stop Amantadine, restart Austedo, check EKG. Allergies as of 09/27/2024 (No Known Allergies) has a current medication list which includes the following prescription(s): atorvastatin, dextromethorphan-quinidine, mirtazapine, quetiapine, sertraline, and deutetrabenazine er. Vitals:09/27/24 1103 BP: (!) 112/49 Pulse: 91 Resp: 16 Temp: 36.2 ?C (97.2 ?F) SpO2: 94% Neurological Exam Mental Status Awake and alert. Speech is normal. Cranial NervesCN II: Visual acuity is normal. CN III, IV, : Extraocular movements intact bilaterally. Pupils equal round and reactive to light bilaterally. CN VII: Full and symmetric facial movement. CN XII: Tongue midline without atrophy or fasciculations. MotorThe following abnormal movements were seen: Strength is 5/5 throughout all four extremities. Moderate to severe choreiform movements. SensoryLight touch is normal in upper and lower extremities. Temperature is normal in upper and lower extremities. Vibration is normal in upper and lower extremities. ReflexesDeep tendon reflexes: Symmetric. GaitCasual gait: Choreaic. Results for orders placed or performed in visit on 11/11/22 Ceruloplasmin Collection Time: 11/15/22 9:52 AM Result Value Ref Range Ceruloplasmin 20 18 - 36 mg/dL Copper Level Collection Time: 11/15/22 9:52 AM Result Value Ref Range Copper Lvl 64 (L) 70 - 175 mcg/dl Zinc Level Collection Time: 11/15/22 9:52 AM Result Value Ref Range Zinc Lvl 55 (L) 60 - 130 mcg/dl Vitamin B1 Level Collection Time: 11/15/22 9:52 AM Result Value Ref Range Vitamin B1 121 78 - 185 mmol/L Comprehensive Metabolic Panel Collection Time: 11/15/22 9:52 AM Result Value Ref Range Bilirubin Total 0.6 0.2 - 1.2 mg/dL Albumin/Globulin Ratio 1.7 1.0 - 2.5 (CALC) Alkaline Phosphatase 64 35 - 144 unit/L Total Protein 6.8 6.1 - 8.1 g/dL Globulin 2.5 1.9 - 3.7 g/dL Albumin Lvl 4.3 3.6 - 5.1 g/dL CO2 Lvl 28 20 - 32 mMol/L Chloride Lvl 105 98 - 110 mMol/L Calcium Lvl 9.4 8.6 - 10.3 mg/dL B/C Ratio NOT APPLICABLE 6 - 22 (CALC) Potassium Lvl 4.3 3.5 - 5.3 mMol/L Sodium Lvl 141 135 - 146 mMol/L BUN 13 7 - 25 mg/dL eGFR 103 > OR = 60 mL/min/1.73m2 Creatinine Lvl 0.71 0.70 - 1.35 mg/dL Glucose Lvl 98 65 - 99 mg/dL ALT 10 9 - 46 unit/L AST 14 10 - 35 unit/L Copper Level Urine Collection Time: 11/15/22 9:52 AM Result Value Ref Range U Creatinine (mg/dL) 33 20 - 320 mg/dL U Copper SEE COMMENT <87 ug/gCR Complete Blood Count w/Diff and Platelet Collection Time: 11/15/22 9:56 AM Result Value Ref Range WBC 6.7 3.8 - 10.8 K/ul Basos % 0.3 % Eos % 0.4 % Eosinophils # 27 15 - 500 Cells/uL Monocytes # 328 200 - 950 Cells/uL Monocytes 4.9 % Lymphs % 27.5 % Segs % 66.9 % Basophils # 20 0 - 200 Cells/uL Plt Count 322 140 - 400 K/ul RDW 12.9 11.0 - 15.0 % MCHC 34.6 32.0 - 36.0 g/dL Lymphocytes # 1,843 850 - 3,900 Cells/uL Segs # 4,482 1,500 - 7,800 Cells/uL MPV 10.1 7.5 - 12.5 fL Hgb 15.1 13.2 - 17.1 g/dL RBC 4.77 4.20 - 5.80 M/CMM MCH 31.7 27.0 - 33.0 pg MCV 91.6 80.0 - 100.0 fL Hct 43.7 38.5 - 50.0 % No MRI head results found for the past 12 months Assessment & PlanDiagnoses and all orders for this visit: [place]'s disease (HCC) - ECG 12 lead; Future - Ambulatory referral to Neurology; Future Other orders - deutetrabenazine ER (Austedo XR) 36 MG 24 hr tablet; Take 1 tablet by mouth 1 time each day. Swallow whole; do NOT break, chew, or crush. Stop amantadine, restart the Austedo. Check EKG Time: 35 minutes I am the continuing focal point for needed health care services and medicalcare services that are part of ongoing care related to this patient's single, serious condition or complex condition. NATOR Rodri MartinezPmmpcmc0223-14-05 18:04:22Upcoming Encounters Scheduled Orders Name Type Priority Associated Diagnoses Orde r Schedule ECG 12 lead ECG Routine Cristian's disease (HC C) Expected: 09/27/2024 (Approximate), Expires: 09/27/2025 Scheduled Referrals Name Type Priority Associated Diagnoses Order Schedule Ambulatory referral to Neurology Outpatient Referral Routine [place]'s disease (HCC) Expected: 09/27/2024 (Approximate), Expires: 09/27/2025 Health Maintenance Due Date Last Done Comments CT Colonography 1958 Colonoscopy 1958 Colorectal Cancer Screening 1958 FIT-DNA 1958 FIT 1958 FOBT 1958 Medicare Annual Wellness (AWV) 1958 Medicare Initial Physical (IPPE) 1958 Sigmoidoscopy 1958 Annual Physical 1961 DTaP/Tdap/Td Vaccines (1 - Tdap) 1977 Zoster Vaccines (1 of 2) 2008 Pneumococcal Vaccine: 65+ Years (1 of 1 - PCV) 11/24/2023 Influenza Vaccine (#1) 2024 Lipid Panel 05/07/2025 05/07/2020, 05/06/2020 Respiratory Syncytial Virus (RSV) or >=60 (1 - 1-dose 75+ series) 2033 HIB Vaccines Aged Out No longer eligi ble based on patient's age to complete this topic HPV Vaccines Aged Out No longer eligi ble based on patient's age to complete this topic Hepatitis A Vaccines Aged Out No long er eligible based on patient's age to complete this topic Hepatitis B Vaccines Aged Out No long er eligible based on patient's age to complete this topic IPV Vaccines Aged Out No longer eligi ble based on patient's age to complete this topic Meningococcal Vaccine Aged Out No nya silvana eligible based on patient's age to complete this topic Rotavirus Vaccines Aged Out No longer eligible based on patient's age to complete this topic [facility] Wovupsk0619-89-04 18:04:22 Diagnosis 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 HospitalSuayrci8630-58-60 18:04:[address] [facility] HospitalCbjlvyw1202-20-04 18:04:22* Consultation (Routine) - Pending Review Specialty Diagnoses / Procedures Referred By Leslie rodriguez Referred To Contact Neurology Diagnoses [place]'s disease (HCC) Procedures [facility] OFF[facility]PATIENT [facility] 60 MINUTES Loi Lackey MD [address] [place] [address] Phone: tel: fax: Minerva Baxter MD [address] [facility] [address] [place] [address] Phone: tel: fax: Referral ID Status Reason Start Date Expiration Date Visits Requested Visits Authorized [id number] Pending Review Specialty Services Required 09/27/2024 03/26/2025 [address] [facility] HospitalLxxhete2040-15-37 18:04:22* [facility] HospitalKdrhokh4097-90-81 18:04:22 [place] 553015-02-13 18:04:22* Loi Lackey MD - 09/27/2024 10:45 AM LAMINATOR History of Present Illness HPI Has cristian's lost to follow up, insurance. A lot of extra movements. Has been on/off Austedo but had been working well without worsening his depression. Some memory issues as well. Will stop Amantadine, restart Austedo, check EKG. Allergies as of 09/27/2024 (No Known Allergies) has a current medication list which includes the following prescription(s): atorvastatin, dextromethorphan-quinidine, mirtazapine, quetiapine, sertraline, and deutetrabenazine er. Vitals:09/27/24 1103 BP: (!) 112/49 Pulse: 91 Resp: 16 Temp: 36.2 ?C (97.2 ?F) SpO2: 94% Neurological Exam Mental Status Awake and alert. Speech is normal. Cranial NervesCN II: Visual acuity is normal. CN III, IV, : Extraocular movements intact bilaterally. Pupils equal round and reactive to light bilaterally. CN VII: Full and symmetric facial movement. CN XII: Tongue midline without atrophy or fasciculations. MotorThe following abnormal movements were seen: Strength is 5/5 throughout all four extremities. Moderate to severe choreiform movements. SensoryLight touch is normal in upper and lower extremities. Temperature is normal in upper and lower extremities. Vibration is normal in upper and lower extremities. ReflexesDeep tendon reflexes: Symmetric. GaitCasual gait: Choreaic. Results for orders placed or performed in visit on 11/11/22 Ceruloplasmin Collection Time: 11/15/22 9:52 AM Result Value Ref Range Ceruloplasmin 20 18 - 36 mg/dL Copper Level Collection Time: 11/15/22 9:52 AM Result Value Ref Range Copper Lvl 64 (L) 70 - 175 mcg/dl Zinc Level Collection Time: 11/15/22 9:52 AM Result Value Ref Range Zinc Lvl 55 (L) 60 - 130 mcg/dl Vitamin B1 Level Collection Time: 11/15/22 9:52 AM Result Value Ref Range Vitamin B1 121 78 - 185 mmol/L Comprehensive Metabolic Panel Collection Time: 11/15/22 9:52 AM Result Value Ref Range Bilirubin Total 0.6 0.2 - 1.2 mg/dL Albumin/Globulin Ratio 1.7 1.0 - 2.5 (CALC) Alkaline Phosphatase 64 35 - 144 unit/L Total Protein 6.8 6.1 - 8.1 g/dL Globulin 2.5 1.9 - 3.7 g/dL Albumin Lvl 4.3 3.6 - 5.1 g/dL CO2 Lvl 28 20 - 32 mMol/L Chloride Lvl 105 98 - 110 mMol/L Calcium Lvl 9.4 8.6 - 10.3 mg/dL B/C Ratio NOT APPLICABLE 6 - 22 (CALC) Potassium Lvl 4.3 3.5 - 5.3 mMol/L Sodium Lvl 141 135 - 146 mMol/L BUN 13 7 - 25 mg/dL eGFR 103 > OR = 60 mL/min/1.73m2 Creatinine Lvl 0.71 0.70 - 1.35 mg/dL Glucose Lvl 98 65 - 99 mg/dL ALT 10 9 - 46 unit/L AST 14 10 - 35 unit/L Copper Level Urine Collection Time: 11/15/22 9:52 AM Result Value Ref Range U Creatinine (mg/dL) 33 20 - 320 mg/dL U Copper SEE COMMENT <87 ug/gCR Complete Blood Count w/Diff and Platelet Collection Time: 11/15/22 9:56 AM Result Value Ref Range WBC 6.7 3.8 - 10.8 K/ul Basos % 0.3 % Eos % 0.4 % Eosinophils # 27 15 - 500 Cells/uL Monocytes # 328 200 - 950 Cells/uL Monocytes 4.9 % Lymphs % 27.5 % Segs % 66.9 % Basophils # 20 0 - 200 Cells/uL Plt Count 322 140 - 400 K/ul RDW 12.9 11.0 - 15.0 % MCHC 34.6 32.0 - 36.0 g/dL Lymphocytes # 1,843 850 - 3,900 Cells/uL Segs # 4,482 1,500 - 7,800 Cells/uL MPV 10.1 7.5 - 12.5 fL Hgb 15.1 13.2 - 17.1 g/dL RBC 4.77 4.20 - 5.80 M/CMM MCH 31.7 27.0 - 33.0 pg MCV 91.6 80.0 - 100.0 fL Hct 43.7 38.5 - 50.0 % No MRI head results found for the past 12 months Assessment & PlanDiagnoses and all orders for this visit: 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 Swallow whole; do NOT break, chew, or crush. Stop amantadine, restart the Austedo. Check EKG Time: 35 minutes I am the continuing focal point for needed health care services and medicalcare services that are part of ongoing care related to this patient's single, serious condition or complex condition. [facility]2025-02-13 18:04:22Upcoming Encounters Scheduled Orders Name Type Priority Associated Diagnoses Orde r Schedule ECG 12 lead ECG Routine Sanilac's disease (HC C) Expected: 09/27/2024 (Approximate), Expires: 09/27/2025 Scheduled Referrals Name Type Priority Associated Diagnoses Order Schedule Ambulatory referral to Neurology Outpatient Referral Routine Cristian's disease (HCC) Expected: 09/27/2024 (Approximate), Expires: 09/27/2025 Health Maintenance Due Date Last Done Comments CT Colonography 1960 Colonoscopy 1960 Colorectal Cancer Screening 1960 FIT-DNA 1960 FIT 1960 FOBT 1960 Medicare Annual Wellness (AWV) 1960 Medicare Initial Physical (IPPE) 1960 Sigmoidoscopy 1960 Annual Physical 1961 DTaP/Tdap/Td Vaccines (1 - Tdap) 1977 Zoster Vaccines (1 of 2) 2008 Pneumococcal Vaccine: 65+ Years (1 of 1 - PCV) 11/24/2023 Influenza Vaccine (#1) 2024 Lipid Panel 05/07/2025 05/07/2020, 05/06/2020 Respiratory Syncytial Virus (RSV) or >=60 (1 - 1-dose 75+ series) 2033 HIB Vaccines Aged Out No longer eligi ble based on patient's age to complete this topic HPV Vaccines Aged Out No longer eligi ble based on patient's age to complete this topic Hepatitis A Vaccines Aged Out No long er eligible based on patient's age to complete this topic Hepatitis B Vaccines Aged Out No long er eligible based on patient's age to complete this topic IPV Vaccines Aged Out No longer eligi ble based on patient's age to complete this topic Meningococcal Vaccine Aged Out No nya silvana eligible based on patient's age to complete this topic Rotavirus Vaccines Aged Out No longer eligible based on patient's age to complete this topic [id number] 18:04:22 Diagnosis 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 18:04:[address] [facility] [id number] 20:33:51 Patient called from lobby per provider to be assessed by provider and registration informed us that the patient had just left with the daughter. The daughter let registration know just prior to us calling them back. [facility]. 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 Daughter is worried about his safety due to when he has outbursts he "acts like he is possessed and throws himself on floor" and today was the third time in two weeks. Patient is chilean speaking only and is currently A&O x 4 and denies HI/SI. [facility] Gonz[facility]les [id number] 08:52:17 Refill Request: Requested Prescriptions Pending Prescriptions Disp Refills ALPRAZOLAM 0.5 mg tablet [Pharmacy Med Name: ALPRAZOLAM 0.5 MG TABLET] 60 tablet Sig: TAKE ONE TABLET BY MOUTH TWICE A DAY Last office visit: 10-22-22 Last refill date: 11-08-22 Next appt date: not scheduled Unable to refill per ambulatory guidelines and being a controlled substance. Routing to provider for review. Arleen Bernal [facility]
[2024-10-16 05:34] LABS: Absolute Eosinophils 0.1 K/uL (0-0.5); Absolute Monocytes 0.3 K/uL (0.1-1.3); Basophils % 0.4 % (0-1.3); Eosinophils % 1.3 % (0-4.4); Hemoglobin 13.7 g/dL (13.6-17.9); Lymphocytes % 18.6 % (15.3-44.8); MCHC 34.2 g/dL (32.0-36.0); MCV 93.6 fL (80-100); MPV 8.5 fL (7.6-11.3); Neutrophils % 73.7 % (41.7-73.7); Platelets 180 thou/uL (152-406); RBC Red Blood Cell Count 4.27 M/uL (4.33-5.43); Red Cell Distribution Width 13.5 % (12.1-15.2)
[2024-10-16 05:52] LABS: Albumin/Globulin Ratio 1.1 (1.1-1.8); Anion Gap 5.7 mEq/L (5.0-15.0); Bilirubin Total 0.4 mg/dL (0.2-1.0); Globulin 2.8 g/dL (2.3-3.5); Potassium 3.7 mEq/L (3.5-5.1); Protein, Total 5.8 g/dL (6.4-8.2); Troponin High Sensitivity 7.4 pg/mL (<58.9)
[2024-10-16] MEDS ORDERED: LORazepam 2 MG/ML VIAL ONE (05:56)
[2024-10-16 06:01] LABS: PT Prothrombin Time 11.5 SECONDS (10.0-13.0); PTT, Activated Partial Thromb 26.5 SECONDS (24.3-36.9); Protime INR 1.01
--- NOTE | 2024-10-16 06:39 | RAD REPORT ---
EXAM: CT Head Without Intravenous Contrast CLINICAL HISTORY: The patient is 63 years old and is Male; AMS, confused. TECHNIQUE: Axial computed tomography images of the head/brain without intravenous contrast. Sagit tobi and coronal reformatted images were created and reviewed. This CT exam was performed using one or more of the following dose reduction techniques: automated exposure control, adjustment of t he mA and/or kV according to patient size, and/or use of iterative reconstruction technique. COMPARISON: MRI brain November 30, 2022. FINDINGS: Brain: Unremarkable. No hemorrhage. No significant white matter disease. No edema. Ventricles: Unremarkable. No ventriculomegaly. Bones/joints: Unremarkable. No acute skull fracture. Soft tissues: Unremarkable. Sinuses: Unremarkable as visualized. No acute sinusitis. Mastoid air cells: No significant mastoid fluid. IMPRESSION: No acute intracranial findings. No hemorrhage. Electronically signed by: Jazmine Conway MD 10/16/2024 06:35 AM [facility] V2 Due to temporary technical issues with the [employer] reporting system, reports are being cristina d by the in-house radiologist without review as a courtesy to ensure prompt reporting the interpreting radiologist is fully responsible for the content of the report. Transcribed Date/Time: 10/16/2024 6:39 AM
--- NOTE | 2024-10-16 06:40 | EDPHYS ---
Physician Documentation [facility] Name: Florencio Cooley Age: 63 yrs Sex: Male : 1960 Arrival Date: 10/16/2024 Time: 04:40 Bed 3 Private MD: ED Physician Zackary Sinclair HPI: 10/16 04:53 This 63 yrs old Male presents to ER via EMS with complaints of Altered Mental sp3 Status. 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 Please had to get involved who restrained him and he was into point restraints when he arrived to the ED here. Patient has no complaints. It is unknown how he is at his baseline compared to now. EMS reports no other abnormalities. They administered Versed IV prior to arrival.. Historical: - Allergies: 04:51 No Known Allergies; vc1 - PMHx: 04:51 Baker's; Dysphagia; hyperlipidemia; Depressive disorder; pseudobulbar affect; vc1 - PSHx: 04:51 None; vc1 - Immunization history:: Adult Immunizations unknown, . - Infectious Disease History:: Denies. - Social history:: Smoking status: unknown. ROS: 05:00 Constitutional: Negative for fever, chills, and weight loss, Eyes: Negative for injury, sp3 pain, redness, and discharge, Neck: Negative for injury, pain, and swelling, Cardiovascular: Negative for chest pain, palpitations, and edema, Respiratory: Negative for shortness of breath, cough, wheezing, and pleuritic chest pain, Abdomen/GI: Negative for abdominal pain, nausea, vomiting, diarrhea, and constipation, Back: Negative for injury and pain, MS/Extremity: Negative for injury and deformity, Skin: Negative for injury, rash, and discoloration, Psych: Negative for depression, anxiety, suicide ideation, homicidal ideation, and hallucinations, Allergy/Immunology: Negative for hives, rash, and allergies, Endocrine: Negative for neck swelling, polydipsia, polyuria, polyphagia, and marked weight changes, Hematologic/Lymphatic: Negative for swollen nodes, abnormal bleeding, and unusual bruising, 05:00 All other systems are negative, Exam: 05:04 Constitutional: This is a well developed, well nourished patient who is awake, alert, sp3 and in no acute distress. Head/Face: Normocephalic, atraumatic. Eyes: Pupils equal round and reactive to light, extra-ocular motions intact. Lids and lashes normal. Conjunctiva and sclera are non-icteric and not injected. Cornea within normal limits. Periorbital areas with no swelling, redness, or edema. Neck: Trachea midline, no thyromegaly or masses palpated, and no cervical lymphadenopathy. Supple, full range of motion without nuchal rigidity, or vertebral point tenderness. No Meningismus. Chest/axilla: Normal chest wall appearance and motion. Nontender with no deformity. No lesions are appreciated. Cardiovascular: Regular rate and rhythm with a normal S1 and S2. No gallops, murmurs, or rubs. Normal PMI, no JVD. No pulse deficits. Respiratory: Lungs have equal breath sounds bilaterally, clear to auscultation and percussion. No rales, rhonchi or wheezes noted. No increased work of breathing, no retractions or nasal flaring. Abdomen/GI: Soft, non-tender, with normal bowel sounds. No distension or tympany. No guarding or rebound. No evidence of tenderness throughout. Back: No spinal tenderness. No costovertebral tenderness. Full range of motion. Skin: Warm, dry with normal turgor. Normal color with no rashes, no lesions, and no evidence of cellulitis. MS/ Extremity: Pulses equal, no cyanosis. Neurovascular intact. Full, normal range of motion. 05:04 Neuro: Patient oriented to name and in no acute distress. Patient understands that he escaped his behavioral home. He is much less combative than he was earlier., 05:26 ECG was reviewed by the Attending Physician. EKG demonstrates normal sinus rhythm at 83 sp3 bpm with normal intervals, normal QRS, normal axis, normal ST/T-segment's without evidence of acute ischemia. Vital Signs: 04:45 BP 89 / 55; Pulse 89; Resp 14; Pulse Ox 95% on 2 lpm NC; vc1 04:55 BP 101 / 74; Pulse 89; Resp 19; Temp 97.9; Pulse Ox 94% ; Weight 58.97 kg; Height 5 ft. bm8 3 in. ; Pain 0/10; 06:43 BP 98 / 65; Pulse 76; Resp 17; Temp 97.9; Pulse Ox 98% ; Pain 0/10; bm8 07:43 BP 114 / 73; Pulse 78; Resp 18; Temp 97.5; Pulse Ox 98% on R/A; ph 04:55 Body Mass Index 23.03 (58.97 kg, 160.02 cm) bm8 04:55 Pain Scale: Adult bm8 06:43 Pain Scale: Adult bm8 Bart Coma Score: 05:22 Eye Response: spontaneous(4). Motor Response: obeys commands(6). Verbal Response: bm8 oriented(5). Total: 15. 06:43 Eye Response: spontaneous(4). Motor Response: obeys commands(6). Verbal Response: bm8 oriented(5). Total: 15. MDM: 04:51 Medical Screening Exam initiated sp3 05:07 Data reviewed: vital signs, nurses notes, EMS record, lab test result(s), EKG, sp3 radiologic studies. ED course: 63-year-old male with tending to his disease and PMH above presents with confusion and cognitive dysfunction consistent with his disease process. He escaped his home and is now brought to the ED. We will rule out any medical non-Gulshan's etiology behind his outburst and if negative we will safely discharge him home. Blood pressure soft at 95/65. Workup will include EKG, general labs, UA and CT scan of the head. If workup negative we can safely discharge him home.. 06:39 ED course: Family at bedside and patient now fully calm. This is consistent with his sp3 diagnosis and he has had several episodes in the past. He received 1 mg Ativan IV here. CT head, all labs and chest x-ray remain normal. Patient did not want to give urine sample and I do not believe he has a urine infection. Vital signs are normal. We will safely discharge patient home at this time.. 03 04:55 Order name: Blood Culture Adult (2) sp3 10/16 04:55 Order name: CBC with Diff; Complete Time: 05:54 sp3 10/16 04:55 Order name: CMP; Complete Time: 05:54 sp3 10/16 04:55 Order name: Lactate w/ 2H reflex if indic.; Complete Time: 05:54 sp3 10/16 04:55 Order name: Protime (+inr); Complete Time: 06:38 sp3 10/16 04:55 Order name: Ptt, Activated; Complete Time: 06:38 sp3 10/16 04:55 Order name: Troponin High Sensitivity; Complete Time: 05:54 sp3 10/16 04:55 Order name: Chest Single View XRAY sp3 10/16 04:55 Order name: CT Head Brain wo Cont sp3 10/16 04:55 Order name: Cardiac monitoring; Complete Time: 05:22 sp3 10/16 04:55 Order name: EKG - Nurse/Tech; Complete Time: 05:22 sp3 10/16 04:55 Order name: IV Saline Lock - Large Bore; Complete Time: 05:22 sp3 10/16 04:55 Order name: Labs collected and sent; Complete Time: 05:22 sp3 10/16 04:55 Order name: O2 Per Protocol; Complete Time: 05:22 sp3 10/16 04:55 Order name: O2 Sat Monitoring; Complete Time: 05:22 sp3 10/16 04:55 Order name: Vital Signs; Complete Time: 05:22 sp3 Administered Medications: 06:00 Drug: Ativan IVP 1 mg IVP once Route: IVP; Site: left antecubital; bm8 06:44 Follow up: Response: No adverse reaction bm8 Disposition Summary: 10/16/24 06:40 Discharge Ordered Notes: Location: Home sp3 Condition: Stable sp3 Diagnosis - Baker's disease, altered mental status sp3 Followup: sp3 - With: Private Physician - When: Upon discharge from the Emergency Department - Reason: Recheck today's complaints, Continuance of care Discharge Instructions: - Discharge Summary Sheet sp3 - Baker's Disease sp3 Forms: - Medication Reconciliation Form sp3 - Antibiotic Education sp3 - Prescription Opioid Use sp3 - Patient Portal Instructions sp3 - Leadership Thank You Letter sp3 Signatures: Dispatcher [employer] Zackary Davis MD MD sp3 Mariela Suresh, RN RN vc1 Hayder Campos, RN RN bm8 Corrections: (The following items were deleted from the chart) 04:55 04:55 BLOOD CULTURE*+BA.LAB.BRZ ordered. EDMS EDMS 04:55 04:55 CBC+H.LAB.BRZ ordered. EDMS EDMS 04:55 04:55 COMPREHENSIVE METABOLIC PANEL+C.LAB.BRZ ordered. EDMS EDMS 04:55 04:55 LACTATE+C.LAB.BRZ ordered. EDMS EDMS 04:55 04:55 PROTIME (+INR)+COAG.LAB.BRZ ordered. EDMS EDMS 04:55 04:55 PTT, ACTIVATED+COAG.LAB.BRZ ordered. EDMS EDMS 04:55 04:55 Urinalysis+U.LAB.BRZ ordered. EDMS EDMS 04:55 04:55 Troponin High Sensitivity+C.LAB.BRZ ordered. EDMS EDMS 04:55 04:55 Chest Single View+RAD.RAD.BRZ ordered. EDMS EDMS 04:56 04:56 Head Brain Wo Cont+CT.RAD.BRZ ordered. EDMS EDMS
--- NOTE | 2024-10-16 06:40 | ER ---
Nurse's Notes [facility] Name: Florencio Cooley Age: 63 yrs Sex: Male : 1960 Arrival Date: 10/16/2024 Time: 04:40 Bed 3 Private MD: Diagnosis: Gulshan's disease, altered mental status Presentation: 10/16 04:45 Chief complaint: EMS states: Escaped from [facility] when found was altered and vc1 combative. Coronavirus screen: Client denies travel out of the [place] in the last 14 days. At this time, the client does not indicate any symptoms associated with coronavirus-19. Ebola Screen: Patient negative for fever greater than or equal to 101.5 degrees Fahrenheit, and additional compatible Ebola Virus Disease symptoms Patient denies exposure to infectious person. Patient denies travel to an Ebola-affected area in the 21 days before illness onset. No symptoms or risks identified at this time. Initial Sepsis Screen: Does the patient meet any 2 criteria? No. Patient's initial sepsis screen is negative. Does the patient have a suspected source of infection? No. Patient's initial sepsis screen is negative. Risk Assessment: Do you want to hurt yourself or someone else?. Onset of symptoms was October 16, 2024. Care prior to arrival: Medication(s) given: 5 mg Versed IM. Care prior to arrival: IV initiated. 20 GA, in the left forearm, Oxygen administered. via nasal cannula. Activity prior to arrival: combative. 04:45 Method Of Arrival: EMS: [facility] vc1 04:45 Acuity: IVIS 2 vc1 Triage Assessment: 04:55 General: Appears in no apparent distress. comfortable, Behavior is calm, cooperative, bm8 appropriate for age. Pain: Denies pain. EENT: No deficits noted. No signs and/or symptoms were reported regarding the EENT system. Neuro: No deficits noted. 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 Cardiovascular: No deficits noted. Denies chest pain, Capillary refill < 3 seconds in bilateral fingers Patient's skin is warm and dry. Respiratory: Airway is patent Respiratory effort is even, unlabored, Respiratory pattern is regular, symmetrical, Breath sounds are clear bilaterally. GI: No signs and/or symptoms were reported involving the gastrointestinal system. : No signs and/or symptoms were reported regarding the genitourinary system. Derm: No signs and/or symptoms reported regarding the dermatologic system. Musculoskeletal: No signs and/or symptoms reported regarding the musculoskeletal system. 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 - Infectious Disease History:: Denies. - Social history:: Smoking status: unknown. Screenin:22 [facility] ED Fall Risk Assessment (Adult) History of falling in the last 3 months, bm8 including since admission Yes- physiologic fall (2 pts) Confusion or Disorientation Yes (5 pts) Intoxicated or Sedated No (0 pts) Impaired Gait Yes (1 pt) Mobility Assist Device Used No (0 pt) Altered Elimination No (0 pt) Score/Fall Risk Level 3 or more points = High Risk Oriented to surroundings, Maintained a safe environment, Educated pt \T\ family on fall prevention, incl call for assistance when getting out of bed, Assessed \T\ reinforced patient's understanding of fall precautions, Hourly rounding (assess needs \T\ fall precautionary measures) done, Used ambulatory aids as needed (educated on \T\ assisted with), Used gait belt as appropriate Implemented a Fall Risk Plan of Care. Abuse screen: Denies threats or abuse. Nutritional screening: No deficits noted. Tuberculosis screening: No symptoms or risk factors identified. Assessment: 05:22 Reassessment: see triage assessment. bm8 06:43 Reassessment: Patient appears in no apparent distress at this time. Patient and/or bm8 family updated on plan of care and expected duration. Pain level reassessed. Patient is alert, oriented x 3, equal unlabored respirations, skin warm/dry/pink. Patient denies pain at this time. Patient states feeling better. Patient states symptoms have improved. 07:32 Reassessment: SPOKE WITH [facility], TRANSPORT AVAILABLE AFTER 0800. bp 07:43 Reassessment: Patient appears in no apparent distress at this time. Patient and/or ph family updated on plan of care and expected duration. Pain level reassessed. Patient is alert, oriented x 3, equal unlabored respirations, skin warm/dry/pink. Pt d/c home w/ family. Vital Signs: 04:45 BP 89 / 55; Pulse 89; Resp 14; Pulse Ox 95% on 2 lpm NC; vc1 04:55 BP 101 / 74; Pulse 89; Resp 19; Temp 97.9; Pulse Ox 94% ; Weight 58.97 kg; Height 5 ft. bm8 3 in. ; Pain 0/10; 06:43 BP 98 / 65; Pulse 76; Resp 17; Temp 97.9; Pulse Ox 98% ; Pain 0/10; bm8 07:43 BP 114 / 73; Pulse 78; Resp 18; Temp 97.5; Pulse Ox 98% on R/A; ph 04:55 Body Mass Index 23.03 (58.97 kg, 160.02 cm) bm8 04:55 Pain Scale: Adult bm8 06:43 Pain Scale: Adult bm8 Bart Coma Score: 05:22 Eye Response: spontaneous(4). Motor Response: obeys commands(6). Verbal Response: bm8 oriented(5). Total: 15. 06:43 Eye Response: spontaneous(4). Motor Response: obeys commands(6). Verbal Response: bm8 oriented(5). Total: 15. ED Course: 04:42 Patient arrived in ED. [email or web address] 04:44 Zackary Sinclair MD is Attending Physician. sp3 04:47 Triage completed. vc1 04:55 Hayder Campos, RN is Primary Nurse. bm8 04:55 Arm band placed on right wrist. bm8 05:15 No provider procedures requiring assistance completed. bm8 05:15 Initial lab(s) drawn, by me, sent to lab. First set of blood cultures drawn by me, EKG bm8 done, by ED staff, reviewed by Zackary Sinclair MD. Maintain EMS IV. Dressing intact. Good blood return noted. Site clean \T\ dry. Gauge \T\ site: 20g lac. Flushed with 10 mL NS. Patient maintains SpO2 saturation greater than 95% on room air. 05:22 Patient has correct armband on for positive identification. Bed in low position. Call bm8 light in reach. Side rails up X2. Client placed on continuous cardiac and pulse oximetry monitoring. NIBP monitoring applied. social media senior associate on. Pulse ox on. NIBP on. Door closed. Noise minimized. Warm blanket given. Pillow given. Verbal reassurance given. Head of bed elevated. 05:37 CT Head Brain wo Cont In Process Unspecified. EDMS 05:49 Chest Single View XRAY In Process Unspecified. EDMS 06:43 Provided Education on: post er care. bm8 06:43 IV discontinued, intact, bleeding controlled, No redness/swelling at site. Pressure bm8 dressing applied. Administered Medications: 06:00 Drug: Ativan IVP 1 mg IVP once Route: IVP; Site: left antecubital; bm8 06:44 Follow up: Response: No adverse reaction bm8 Medication: 05:22 VIS not applicable for this client. bm8 Outcome: 06:40 Discharge ordered by . sp3 06:43 Discharged to home via wheelchair, bm8 06:43 Condition: stable 06:43 Discharge instructions given to patient, family, Instructed on discharge instructions, follow up and referral plans. Demonstrated understanding of instructions, follow-up care, medications, 07:44 Patient left the ED. ph Signatures: Dispatcher [employer] Enid Bergman, RN RN ph Dayron Cruz, RN RN Zackary Bassett MD MD sp3 Deisi Sierra Vanessa RN RN vc1 Hayder Campos, RN RN bm8 Corrections: (The following items were deleted from the chart) 07:43 07:43 BP 147 / 3; Pulse 78bpm; Resp 18bpm; Pulse Ox 98% RA; Temp 97.5F; ph ph
--- NOTE | 2024-10-16 06:52 | RAD REPORT ---
EXAM DESCRIPTION: XR CHEST, ONE VIEW CLINICAL HISTORY: AMS. COMPARISON: None. FINDINGS: The heart is normal in size. The pulmonary vascularity is normal. The lungs are clear. No dense focal consolidation is seen. No evidence pleural effusions . No pneumothorax is seen. The osseous structures appear unremarkable . IMPRESSION: No acute cardiopulmonary process . Electronically signed by: Martha Casper MD 10/16/2024 06:49 AM [facility] Due to temporary technical issues with the PACS/[employer] reporting system, reports are being cristina d by the in-house radiologist without review as a courtesy to ensure prompt reporting the interpreting radiologist is fully responsible for the content of the report. Transcribed Date/Time: 10/16/2024 6:52 AM
[2024-10-16 07:52] VITALS: O2SAT 98
[2024-10-16 07:53] VITALS: BP 114/73; TEMP 97.5
--- NOTE | 2024-10-16 12:10 | EKG ---
Test Date: 2024-10-16 Test Time: 05:04:12 [employer]: JHONATHAN MEASUREMENT RESULTS: Intervals: Rate: 83 KS: 168 QRSD: 100 QT: 384 QTc: 451 [place]: P: 67 KS: 168 QRS: -54 T: 38 INTERPRETIVE STATEMENTS: Normal sinus rhythm Left anterior fascicular block Abnormal ECG Compared to ECG 10/05/2024 14:10:21 No significant changes Electronically Signed On 10-16-24 12:10:12 [employer] by Guicho Alvarado
== END 2024-10-16 07:44 | disposition home or self-care (01) ==
LOC: ER 04:40
DX: G10 Huntington's disease (principal)
CPT/HCPCS: 36415; 70450; 71045; 80053; 83605; 84484; 85025; 85610; 85730; 87040; 93005; 96374; 99285